=== PATIENT | male | born 1985 | race Caucasian/White ===

== ENCOUNTER 2021-08-25 11:55 | Emergency (ER) | payer OTHER, SELFPAY ==
[2021-08-25 11:56] VITALS: BP 121/92; PULSE 87; RESP 14; TEMP 36.4; O2SAT 100; BMI 24.4
--- NOTE | 2021-08-25 12:35 | CT_ITS ---
STUDY: CT ABDOMEN AND PELVIS WITH CONTRAST REASON FOR EXAM: Male, 36 years old. Abdominal pain RADIATION DOSAGE (If Supplied By Facility): CTDIvol = ( 7.1 ) mGy, DLP = ( 596.71 ) mGycm TECHNIQUE: Transaxial images were obtained from the dome of the diaphragm to the symphysis pubis without oral contrast. IV 100mL Isovue-370 was administered. Sagittal and coronal images were reconstructed. Individualized dose optimization techniques were used for this CT. COMPARISON: None. FINDINGS: There is a 8.3 mm fat-containing nodule in the posterior aspect of the right lower lobe. The visualized portions of the heart are within normal limits. There is decreased attenuation of the liver consistent with steatosis. Normal gallbladder and extrahepatic biliary system. Normal spleen. Normal pancreas. Normal bilateral adrenal glands. Normal right kidney. Normal left kidney. Normal visualized stomach. Normal small intestine. There are multiple colonic diverticula consistent with diverticulosis. The appendix is visualized and appears normal. Normal abdominal aorta. Normal inferior vena cava. Normal retroperitoneum. Normal urinary bladder. There is a small umbilical hernia containing fat. Normal osseous structures. CT/Abdomen/Pelvis W IV Cont ONLY IMPRESSION: Sigmoid diverticulosis. Fatty infiltration of the liver. Electronically Signed: Houston Thomas MD at 15:34 EDT ,
--- NOTE | 2021-08-25 12:43 | EDS_ITS ---
HPI History of Present Illness Chief Complaint: Nausea/Vomiting Informant: patient Narrative Narrative: 36-year-old male presenting to the emergency department with vomiting diarrhea. Patient states for the past 7 days he has had extensive vomiting and diarrhea. He notes some abdominal cramping. He denies any fevers. He notes that the diarrhea is yellow and watery. He denies any blood in the stool or the vomit. Denies any recent bad food exposure. No one else is sick like him at home. He did take some antibiotics recently for a dental infection. He has not been on those for at least 1 week. PFSH PFSH Medical History no medical history no medical history Home Medications dicyclomine 20 mg tablet 20 mg PO TID PRN abdominal pain #20 tabs 08/25/21 [Rx Last Taken Unknown] hydrocodone-acetaminophen 5-325mg 5mg-325mg 1 tab PO Q6H PRN PRN Pain 3 days #12 TABLETS 08/25/21 [Rx Last Taken Unknown] ondansetron 4 mg disintegrating tablet 4 mg PO Q6H PRN PRN Nausea #15 tabs 08/25/21 [Rx Last Taken Unknown] Allergy/AdvReac Type Severity Reaction Status Date / Time No Known Allergies Allergy Verified 08/25/21 11:58 Surgical History Hx of appendectomy Social History (Updated 08/25/21 @ 12:[address] Domo Naranjo DO) current gender identity: male Smoking Status: Never smoker substance use type: does not use ROS ROS ED Constitutional Constitutional ED: Denies chills, fever(s) or weight loss Eyes Eyes: Denies change in vision or diplopia ENT ENT ED: Denies ear pain, rhinorrhea or sore throat Cardiovascular Cardiovascular: Denies chest pain, orthopnea, palpitations or racing heartbeat Respiratory/Chest Respiratory/Chest: Denies cough, dyspnea or orthopnea Gastrointestinal Gastrointestinal: Reports abdominal pain, diarrhea, nausea and vomiting Genitourinary Genitourinary ED: Denies dysuria, hematuria or urinary frequency Musculoskeletal Musculoskeletal: Denies arthralgias or myalgias Integumentary Denies abscess or rash Neurologic Neurologic: Denies headache(s) or weakness Psychiatric Psychiatric: Denies anxiety, depression, suicidal ideation or suicidal thoughts Endocrine Endocrinology: Denies polydipsia, polyphagia or polyuria Allergic/Immunologic Allergic/Immunologic ED: Denies mouth swelling, tongue swelling or urticaria EXAM Physical Exam Const Vital Signs: 08/25/21 11:56 08/25/21 14:00 Temperature 97.6 F L Temperature Source Temporal Pulse Rate 87 70 Respiratory Rate 14 18 Blood Pressure 121/92 H Blood Pressure Mean 101 Pulse Ox 100 Oxygen Delivery Method Room Air Positive well nourished and well developed General Appearance ED: well developed HEENT Reports normocephalic, head/scalp atraumatic and moist mucous membranes Eyes PERRL and EOMs intact bilaterally Neck no lymphadenopathy, supple and no JVD Resp normal respiratory effort and clear to auscultation bilaterally Cardio regular rate, regular rhythm and no murmurs GI non-tender and non-distended Auscultation: hyperactive bowel sounds Palpation: soft; Negative for guarding, mass or rebound tenderness present Back/Spine no CVA tenderness and normal ROM Extremity normal to inspection General Extremety ED: Negative for edema General Extremity: Negative for edema Neuro oriented x3 and CN's II-XII intact bilaterally Sensorium / Orientation: alert Motor Exam: strength 5/5 throughout Psych mental status grossly normal Mood & Affect: Negative for depressed or tearful Skin no rashes or lesions noted and no wounds MDM MDM MDM Narrative Medical decision making narrative: CBC CMP and lipase is normal. CT abdomen pelvis is normal. Patient received Bentyl Zofran and IV fluids. He has been unable to produce a stool specimen. I can write him an order for an outpatient study. I can write for pain medication and Zofran at home. Lab Data Labs: Laboratory Results - last 24 hr 08/25/21 08/25/21 12:45 12:45 WBC 7.2 RBC 5.09 Hgb 14.7 Hct 43.0 MCV 84.5 MCH 28.9 MCHC 34.2 RDW Std Deviation 37.7 RDW Coeff of Rosalva 12.4 Plt Count 374 MPV 9.0 Immature Gran % (Auto) 0.300 Neut % (Auto) 63.6 Lymph % (Auto) 28.6 [place] % (Auto) 5.7 Eos % (Auto) 1.5 Baso % (Auto) 0.3 Absolute Neuts (auto) 4.6 Absolute Lymphs (auto) 2.05 Nucleated RBC % 0 Sodium 142 Potassium 3.9 Chloride 108 H Carbon Dioxide 26.0 Anion Gap 8 BUN 15 Creatinine 1.07 Estim Creat Clear Calc 99.70 Est GFR (MDRD) Af Amer 99 Est GFR (MDRD) Non-Af 82 BUN/Creatinine Ratio 14.0 Glucose 101 Calcium 9.3 Total Bilirubin 0.40 AST 26 ALT 59 Alkaline Phosphatase 63 Total Protein 7.4 Albumin 4.1 Globulin 3.3 Albumin/Globulin Ratio 1.2 Lipase 133 Radiography Diagnostic Testing: Clinical Impression(s) from Imaging Studies Abdomen/Pelvis CT 08/25/21 12:35 IMPRESSION: Sigmoid diverticulosis. Fatty infiltration of the liver. Electronically Signed: Houston Thomas MD at 15:34 EDT , Discharge Plan Triage Chief Complaint: Nausea/Vomiting ED Provider: Domo Naranjo Dx/Rx/DC Orders Clinical Impression: Abdominal pain, vomiting, and diarrhea Instructions: ED Vomiting and Diarrhea ... Prescriptions: New hydrocodone-acetaminophen [hydrocodone-acetaminophen] 5-325 mg tablet 1 tab PO Q6H PRN PRN (Reason: Pain) 3 Days Qty: 12 0RF ondansetron [ondansetron] 4 mg tablet,disintegrating 4 mg PO Q6H PRN PRN (Reason: Nausea) Qty: 15 0RF dicyclomine 20 mg tablet 20 mg PO TID PRN (Reason: abdominal pain) Qty: 20 0RF Other Ambulatory Orders: ENTERIC PATHOGEN PANEL STOOL (Stat) Timeframe: 3 Days Facility: [facility] - Location: Laboratory Ordered By: Dr. Domo Naranjo Primary Care Provider: Care Physician,No Primary Referrals: [facility] Doctor,Out of [NON-STAFF] - Disposition Disposition: Home, Self Care
[2021-08-25] MEDS: Ondansetron 4 MG/2 ML Vial IV (12:45)
[2021-08-25] MEDS: Dicyclomine 10 MG Capsule 20 MG PO (12:46)
[2021-08-25] MEDS: 0.9% Normal Saline 1,000 ML 1000 ML IV (12:48)
[2021-08-25 12:51] LABS: Absolute Lymphocyte Count 2.05 X10^3/uL (0.83-4.51); Absolute Neutrophil Count 4.6 X10^3/uL (2.0-7.7); Basophil# 0.02 X10^3/uL; Basophil% 0.3 % (0-1); Eosinophil# 0.11 X10^3/uL; Eosinophils% 1.5 % (0-5); Hemoglobin 14.7 g/dL (13.0-16.5); Lymphocyte # 2.05 X10^3/ul (0.83-4.51); Lymphocyte % 28.6 % (19-41); Mean Corp Hgb Conc 34.2 g/dL (32-36); Mean Corpuscular Hgb 28.9 pg (27.0-32.0); Mean Corpuscular Volume 84.5 fL (80-94); Monocyte# 0.41 X10^3/uL; Monocyte% 5.7 % (0-10); NRBC Flagged by Analyzer 0 % (0-5); Neutrophil # 4.55 X10^3/uL (2.7-7.7); Neutrophil % 63.6 % (47-70); Platelet Count 374 K/mm3 (150-450); RBC Distribution Width CV 12.4 % (11.6-14.6); RBC Distribution Width SD 37.7 fl (35.1-43.9); Red Blood Count 5.09 M/mm3 (4.6-6.2); White Blood Count 7.2 K/mm3 (4.4-11.0)
[2021-08-25 13:09] LABS: ALB/GLOB Ratio 1.2 RATIO (0.9-2.4); AST(SGOT) 26 U/L (15-37); Alanine Aminotransfer ALT/SGPT 59 U/L (16-61); Albumin, Serum 4.1 g/dL (3.2-5.0); Alkaline Phosphatase 63 U/L (45-117); Anion Gap 8 (5-15); BUN 15 mg/dL (7-18); Calcium,Total 9.3 mg/dL (8.5-10.1); Chloride 108 mmol/L (98-107); Creatinine, Serum 1.07 mg/dL (0.70-1.30); EST Glomerular Filtration Rate 82 mL/min (>60); Est Glom Filt Rate - Afr Amer 99 mL/min (>60); Globulin 3.3 g/dL (2.2-4.2); Glucose 101 mg/dL (74-106); Lipase 133 U/L (73-393); Potassium 3.9 mmol/L (3.5-5.1); Protein, Total 7.4 g/dL (6.4-8.2); Sodium Level 142 mmol/L (136-145)
--- NOTE | 2021-08-25 13:36 | CM.ED ---
Social Work Note Reason for Referral: No PCP SW reviewed chart and pt has no PCP listed. SW in to speak with pt. Pt confirms he has no PCP. SW provided pt with PCP List/[facility] Healthcare Directory. Ericka Cordova SET ILLUSTRATOR, MEDICAL LAB SPECIALIST
[2021-08-25 14:00] VITALS: PULSE 70; RESP 18
[2021-08-25 16:01] VITALS: BP 134/77; PULSE 62; RESP 15; O2SAT 97
== END 2021-08-25 16:03 | disposition home or self-care (01) ==
PROVIDERS: Emergency Provider Emergency Medicine; Visit Provider Emergency Medicine
DX: R11.2 Nausea with vomiting, unspecified (principal); R10.9 Unspecified abdominal pain; R19.7 Diarrhea, unspecified
CPT/HCPCS: 74177; 80053; 83690; 85025; 96361; 96374; 99284; J7030; Q9967; A4216; J2405

== ENCOUNTER 2023-04-27 23:42 | Emergency (ER) | payer OTHER, SELFPAY ==
[2023-04-27 23:43] VITALS: BP 139/105; PULSE 87; RESP 18; TEMP 35.8; O2SAT 96; BMI 25.7
--- NOTE | 2023-04-28 00:03 | CT_ITS ---
EXAM: CT ABDOMEN AND PELVIS WITH INTRAVENOUS CONTRAST CLINICAL INDICATION: diffuse pain, vomiting TECHNIQUE: Helically acquired images were obtained of the abdomen and pelvis with intravenous contrast. This CT exam was performed using one or more of the following dose reduction techniques: automated exposure control, adjustment of the mA and/or kV according to patient size, and/or use of iterative reconstruction technique. CONTRAST: 100 cc of Isovue-370 IV. RADIATION DOSE: CTDIvol = 16.33 mGy, DLP = 884.06 mGy-cm COMPARISON: No relevant prior studies available. FINDINGS: LOWER THORAX: Unremarkable. Lung bases are clear. No cardiomegaly. No significant pericardial effusion. ABDOMEN: LIVER: There is diffuse low-attenuation of the liver. GALLBLADDER AND BILE DUCTS: Unremarkable. No calcified gallstones. No gallbladder distention or wall edema. No intra- or extrahepatic biliary ductal dilation. PANCREAS: Unremarkable. No focal cystic or solid mass. SPLEEN: Unremarkable. Normal size without focal cystic or solid mass. ADRENALS: Unremarkable. No nodules. KIDNEYS AND URETERS: Unremarkable. Normal renal size and position. No hydronephrosis. STOMACH AND BOWEL: Unremarkable. No stomach or bowel distention. No focal inflammatory change. PELVIS: APPENDIX: No evidence of acute appendicitis. BLADDER: Unremarkable. REPRODUCTIVE: Unremarkable as visualized. No mass. ABDOMEN and PELVIS: INTRAPERITONEAL SPACE: Unremarkable. No ascites or other fluid collection. No free air. BONES/JOINTS: Unremarkable. No suspicious lytic or blastic abnormality. SOFT TISSUES: Unremarkable. No discrete abdominal or pelvic wall hernia. VASCULATURE: Unremarkable. Abdominal aorta is non-dilated. LYMPH NODES: Unremarkable. No enlarged lymph nodes. CT/Abdomen/Pelvis W IV Cont ONLY IMPRESSION: 1. Fatty liver. 2. No acute abdominal pelvic abnormality. Electronically Signed: Silviano Hernandez MD at 1:40 EDT ,
--- NOTE | 2023-04-28 00:04 | ED.VIS.GI ---
HPI HPI - GI History of Present Illness Chief Complaint: Constipation Informant: patient Narrative Narrative: Patient states he has been having abdominal discomfort, bloating, constipation for up to about a month, and nonspecific abdominal problems for maybe up to a year. He saw his doctor, was referred to GI with whom he has not had the appointment yet, he is post to see Dr. Yu next week, however in the past couple days everything is worse, he cannot keep anything down, is vomiting without blood or bilious emesis. Initially he was having just very hard stools despite Ex-Lax and stool softeners, then he would intermittently have bouts of watery diarrhea and abdominal cramping and then back to constipation again. In the last week or so, he feels like he needs to go but cannot other than very small amounts of loose stool. [facility] Medical History (Updated 04/28/23 @ 02:[address] Deion Butler MD) Chronic pain after traumatic injury Home Medications dicyclomine 20 mg tablet 20 mg PO TID PRN abdominal pain #20 tabs 08/25/21 [Rx Last Taken Unknown] hydrocodone-acetaminophen 5-325mg 5mg-325mg 1 tab PO Q6H PRN PRN Pain 3 days #12 TABLETS 08/25/21 [Rx Last Taken Unknown] ondansetron 4 mg disintegrating tablet 4 mg PO Q6H PRN PRN Nausea #15 tabs 08/25/21 [Rx Last Taken Unknown] cyclobenzaprine 10 mg tablet 10 mg PO Q8H PRN PRN muscle spasm 04/28/23 [History Last Taken Unknown] hyoscyamine sulfate 0.125 mg disintegrating tablet 0.125 mg PO Q6H PRN abdominal discomfort #20 tabs 04/28/23 [Rx Last Taken Unknown] Allergy/AdvReac Type Severity Reaction Status Date / Time codeine Allergy Mild Chest Verified 04/27/23 23:42 tightness Surgical History Hx of appendectomy Social History Smoking Status: Former smoker substance use type: does not use ROS ROS ED Constitutional Constitutional ED: Denies chills or fever(s) Eyes Eyes: Denies change in vision or diplopia ENT ENT ED: Denies rhinorrhea or sore throat Cardiovascular Cardiovascular: Denies chest pain or palpitations Respiratory/Chest Respiratory/Chest: Denies cough or dyspnea Gastrointestinal Gastrointestinal: Reports abdominal pain, constipation, diarrhea, nausea and vomiting; Denies melena Genitourinary Genitourinary ED: Denies dysuria or hematuria Musculoskeletal Musculoskeletal: Denies back pain or neck pain Integumentary Denies abscess or rash Neurologic Neurologic: Denies headache(s), paresthesias or weakness Psychiatric Psychiatric: Denies anxiety or suicidal thoughts EXAM Physical Exam Const Vital Signs: 04/27/23 23:43 04/28/23 00:19 04/28/23 02:00 Temperature 96.5 F L Temperature Source Temporal Pulse Rate 87 66 80 Respiratory Rate 18 18 16 Blood Pressure 139/105 H 134/92 H 121/92 H Blood Pressure Mean 116 106 101 Pulse Ox 96 100 100 Oxygen Delivery Method Room Air Room Air Room Air Positive well nourished and well developed General Appearance ED: well developed and NAD HEENT Reports moist mucous membranes normocephalic and atraumatic Eyes PERRL and EOMs intact bilaterally Neck full ROM and supple Resp normal respiratory effort and clear to auscultation bilaterally Cardio regular rate, regular rhythm and no murmurs GI GI Narrative: Distended abdomen with hypoactive bowel sounds but an occasional tinkle. Tender right lower quadrant and across the upper abdomen. Palpation: soft Back/Spine no CVA tenderness General Back: other FROM Extremity normal to inspection General Extremety ED: Negative for edema, pulses abnormal or tenderness General Extremity: Negative for edema or pulses abnormal Neuro oriented x3, CN's II-XII intact bilaterally and no sensory deficits noted Sensorium / Orientation: awake and alert Motor Exam: strength 5/5 throughout Psych mental status grossly normal and thought process normal Skin no rashes or lesions noted and no wounds MDM MDM MDM Narrative Medical decision making narrative: We discussed treating constipation, however they are thinking this is something different. With the intermittent nature of the consistency of his stools, certainly encopresis is in the differential, but this may also be something different like colitis, irritable bowel syndrome, inflammatory bowel disease. Therefore prior to his specific treatment, he is amenable to CT and labs. This was done. I reviewed the CT images and report which I agree with, basically negative for anything acute. When I reevaluated him, he states he is still feeling bloated. His bowels are not distended on the CT. He has stool in the ascending and descending colon, but not an excessive amount. We discussed trying an enema, he declines. We did discuss fatty liver finding on the CT which is an incidental finding and I do not think related to the symptoms directly. 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 Therefore I did a bedside ultrasound of his gallbladder, he has a negative sonographic Brower's, I see no shadowing stones or gallbladder wall thickening or pericholecystic fluid. At this time my recommendation would be to try a mini cleanse with 1-2 cups of MiraLAX in a 12-hour period along with plenty of water, dicyclomine as needed, and follow-up with GI as scheduled. He is amenable to this plan. Lab Data Attestation: I reviewed the patient's lab results. Labs: Laboratory Results - last 24 hr 04/28/23 00:10 WBC 9.2 RBC 5.43 Hgb 15.5 Hct 45.1 MCV 83.1 MCH 28.5 MCHC 34.4 RDW Std Deviation 37.2 RDW Coeff of [place]al[place] 12.3 Plt Count 342 MPV 9.3 Immature Gran % (Auto) 1.300 H Neut % (Auto) 56.0 Lymph % (Auto) 34.1 [place] % (Auto) 5.8 Eos % (Auto) 2.3 Baso % (Auto) 0.5 Absolute Neuts (auto) 5.2 Absolute Lymphs (auto) 3.14 Nucleated RBC % 0 Sodium 143 Potassium 3.3 L Chloride 111 H Carbon Dioxide 25.0 Anion Gap 7 BUN 15 Creatinine 1.13 Estim Creat Clear Calc 92.55 Est GFR (MDRD) Af Amer 92 Est GFR (MDRD) Non-Af 76 BUN/Creatinine Ratio 13.3 Glucose 120 H Calcium 9.2 Total Bilirubin 1.00 AST 40 H ALT 106 H Alkaline Phosphatase 53 Total Protein 7.5 Albumin 4.4 Globulin 3.1 Albumin/Globulin Ratio 1.4 Lipase 48 Urine Color Yellow Urine Clarity Clear Urine pH 5.0 Ur Specific [place] 1.020 Urine Protein Negative Urine Glucose (UA) Normal Urine Ketones 50 H Urine Occult Blood Negative Urine Nitrite Negative Urine Bilirubin Negative Urine Urobilinogen Normal Ur Leukocyte Esterase Negative Urine RBC 0 SEEN Urine WBC 0 SEEN Ur Squamous Epith Cells 0 SEEN Urine Bacteria 0 SEEN Urine Mucus 0 SEEN Radiography Diagnostic Testing: Clinical Impression(s) from Imaging Studies Abdomen/Pelvis CT 04/28/23 00:03 IMPRESSION: 1. Fatty liver. 2. No acute abdominal pelvic abnormality. Electronically Signed: Silviano Hernandez MD at 1:40 EDT , Discharge Plan Triage Chief Complaint: Constipation ED Provider: Deion Butler Dx/Rx/DC Orders Clinical Impression: Diffuse abdominal pain Instructions: Abdominal Pain Prescriptions: New hyoscyamine sulfate 0.125 mg tablet,disintegrating 0.125 mg PO Q6H PRN (Reason: abdominal discomfort) Qty: 20 0RF No Action hydrocodone-acetaminophen [hydrocodone-acetaminophen] 5-325 mg tablet 1 tab PO Q6H PRN PRN (Reason: Pain) 3 Days Qty: 12 0RF ondansetron [ondansetron] 4 mg tablet,disintegrating 4 mg PO Q6H PRN PRN (Reason: Nausea) Qty: 15 0RF dicyclomine 20 mg tablet 20 mg PO TID PRN (Reason: abdominal pain) Qty: 20 0RF cyclobenzaprine 10 mg tablet 10 mg PO Q8H PRN PRN (Reason: muscle spasm) Primary Care Provider: Care Physician,No Primary Referrals: Saleem Yu MD [Non-Staff] - [facility] appointment Activity Restrictions/Additional Instructions: Consider trying a mini colon cleanse with MiraLAX or generic equivalent (polyethylene glycol or PEG). Use 1-2 cups with plenty of water within a 8-hour period, and expect watery diarrhea within 12 hours. Drink plenty of water to prevent getting dehydrated. Disposition Disposition: Home, Self Care
[2023-04-28] MEDS: 0.9% Normal Saline (1000mL) 1,000 ML 1000 ML IV (00:17)
[2023-04-28] MEDS: Ondansetron 4 MG/2 ML Vial IV (00:17)
[2023-04-28] MEDS: Ketorolac 15 MG/ML Vial IV (00:17)
[2023-04-28] MEDS: fentaNYL 100 MCG/2 ML Ampul 50 MCG IV (00:17)
[2023-04-28 00:19] VITALS: BP 134/92; PULSE 66; RESP 18; O2SAT 100
[2023-04-28 00:22] LABS: Bacteria 0 SEEN /hpf (None Seen); Mucous, Urine 0 SEEN /hpf (<or=2+); Red Blood Cells-Urine 0 SEEN /hpf (0-5); Squamous Epithelial Cells - UA 0 SEEN /hpf (0-5); White Blood Cells 0 SEEN /hpf (0-5)
[2023-04-28 00:26] LABS: Color, Urine Yellow (Yellow); Glucose, Dipstick Normal (Normal); Ketone-Dipstick 50 mg/dl (Negative); Leukocyte Esterase-Dipstick Negative /ul (Negative); Nitrite-Dipstick Negative (Negative); Occult Blood-Urine Negative /ul (Negative); Protein-Dipstick Negative (Negative); Urine Bilirubin Dipstick Negative (Negative); Urine Clarity Clear (Clear); Urine Urobilinogen Normal (Normal)
[2023-04-28 00:33] LABS: Absolute Lymphocyte Count 3.14 X10^3/uL (0.83-4.51); Absolute Neutrophil Count 5.2 X10^3/uL (2.0-7.7); Basophil# 0.05 X10^3/uL; Basophil% 0.5 % (0-1); Eosinophil# 0.21 X10^3/uL; Eosinophils% 2.3 % (0-5); Hematocrit 45.1 % (40-54); Hemoglobin 15.5 g/dL (13.0-16.5); Lymphocyte # 3.14 X10^3/ul (0.83-4.51); Lymphocyte % 34.1 % (19-41); Mean Corp Hgb Conc 34.4 g/dL (32-36); Mean Corpuscular Hgb 28.5 pg (27.0-32.0); Mean Corpuscular Volume 83.1 fL (80-94); Mean Platelet Vol. 9.3 fl (6.2-12.0); Monocyte# 0.53 X10^3/uL; Monocyte% 5.8 % (0-10); NRBC Flagged by Analyzer 0 % (0-5); Neutrophil # 5.16 X10^3/uL (2.7-7.7); Platelet Count 342 K/mm3 (150-450); RBC Distribution Width CV 12.3 % (11.6-14.6); RBC Distribution Width SD 37.2 fl (35.1-43.9); Red Blood Count 5.43 M/mm3 (4.6-6.2); White Blood Count 9.2 K/mm3 (4.4-11.0)
[2023-04-28 00:43] LABS: ALB/GLOB Ratio 1.4 RATIO (0.9-2.4); AST(SGOT) 40 U/L (15-37); Alanine Aminotransfer ALT/SGPT 106 U/L (16-61); Albumin, Serum 4.4 g/dL (3.2-5.0); Alkaline Phosphatase 53 U/L (45-117); Anion Gap 7 (5-15); BUN 15 mg/dL (7-18); BUN/Creat Ratio 13.3 RATIO (10-20); Calcium,Total 9.2 mg/dL (8.5-10.1); Chloride 111 mmol/L (98-107); Creatinine, Serum 1.13 mg/dL (0.70-1.30); EST Glomerular Filtration Rate 76 mL/min (>60); Est Glom Filt Rate - Afr Amer 92 mL/min (>60); Estimated Creatinine Clearance 92.55 ml/min; Globulin 3.1 g/dL (2.2-4.2); Glucose 120 mg/dL (74-106); Lipase 48 U/L (13-75); Potassium 3.3 mmol/L (3.5-5.1); Protein, Total 7.5 g/dL (6.4-8.2); Sodium Level 143 mmol/L (136-145)
[2023-04-28 02:00] VITALS: BP 121/92; PULSE 80; RESP 16; O2SAT 100
[2023-04-28 03:02] VITALS: BP 120/82; PULSE 65; RESP 18; TEMP 36.9; O2SAT 100
== END 2023-04-28 03:03 | disposition home or self-care (01) ==
PROVIDERS: Emergency Provider Emergency Medicine; Visit Provider Emergency Medicine
DX: R10.9 Unspecified abdominal pain (principal); Z87.891 Personal history of nicotine dependence
CPT/HCPCS: 74177; 80053; 81001; 83690; 85025; 99283; J7030; Q9967; J2405

== ENCOUNTER → 2023-05-05 | Outpatient (CLI) | payer OTHER, SELFPAY ==
[2023-05-05 13:03] LABS: ALB/GLOB Ratio 1.3 RATIO (0.9-2.4); AST(SGOT) 44 U/L (15-37); Alanine Aminotransfer ALT/SGPT 96 U/L (16-61); Albumin, Serum 4.4 g/dL (3.2-5.0); Alkaline Phosphatase 53 U/L (45-117); Anion Gap 5 (5-15); BUN 15 mg/dL (7-18); BUN/Creat Ratio 12.8 RATIO (10-20); CRP < 2.90 mg/L (0.0-3.0); Calcium,Total 9.6 mg/dL (8.5-10.1); Chloride 108 mmol/L (98-107); Creatinine, Serum 1.17 mg/dL (0.70-1.30); EST Glomerular Filtration Rate 73 mL/min (>60); Est Glom Filt Rate - Afr Amer 89 mL/min (>60); Globulin 3.5 g/dL (2.2-4.2); Glucose 107 mg/dL (74-106); Potassium 3.8 mmol/L (3.5-5.1); Protein, Total 7.9 g/dL (6.4-8.2); Sodium Level 140 mmol/L (136-145); T4 Total, Thyroxin 11.2 ug/dL (4.5-12.1); Thyroid Stim Hormone (TSH) 1.17 uIU/mL (0.358-3.74)
== END | disposition home or self-care (01) ==
PROVIDERS: Referring Provider Internal Medicine Gastroenterology; Visit Provider Internal Medicine Gastroenterology
DX: K59.00 Constipation, unspecified (principal)
CPT/HCPCS: 36415; 80053; 84436; 84443; 86140

== ENCOUNTER → 2025-01-03 | Outpatient (CLI) | payer OTHER, SELFPAY ==
[2025-01-03 12:19] LABS: Hematocrit 47.4 % (40-54); Hemoglobin 16.1 g/dL (13.0-16.5); Mean Corp Hgb Conc 34.0 g/dL (32-36); Mean Corpuscular Volume 84.6 fL (80-94); Mean Platelet Vol. 9.5 fl (6.2-12.0); Platelet Count 356 K/mm3 (150-450); RBC Distribution Width CV 12.2 % (11.6-14.6); RBC Distribution Width SD 37.4 fl (35.1-43.9); Red Blood Count 5.60 M/mm3 (4.6-6.2); White Blood Count 11.5 K/mm3 (4.4-11.0)
--- OUTSIDE RECORDS SUMMARY | 2025-01-03 12:40 | XMS RPT_ITS | CCD ---
Author Organization [facility] Care Team Providers Care [facility] Service Representative Name Role Phone Unavailable Primary Care Provider Unavailabl e PHYSICIAN, NONE Primary Care Physician Unavailab Saleem Davis Referring Unavailable Saleem Yu Attending Unavailable Care Physician, No Primary Primary Care Unava ilable Deion Butler Attending Unavailable Care Physician, No Primary Primary Care Unava ilable YOLIE MAYA Attending Unavailable PHYSICIAN, NONE Primary Care Unavailable Unavailable Primary Care Provider Unavailabl e Allergies Allergy Classification Reported Allergen(s) Allergy Type Date of Onset Reaction(s) Facility (7 sources) Codeine; Translations: [codeine] Drug Allergy 06-05-2019 Unknown [facility] (1 source) Codeine Drug Allergy 04-27-2023 [facility] Repository Medications Current Medications Medication Drug Class(es) Dates Sig (Normalized) Sig (Original) acetaminophen 325 mg / HYDROcodone bitartrate 5 mg oral tablet (3 sources) Opioid Agonist Start: 08-25-2021 take 1 tablet by mouth every six hours as needed Hydrocodone-Acet aminophen Active 1 TABLET PO EVERY 6 HOURS NEEDED 12 3 August 25, 2021 acetaminophen 325 mg / oxyCODONE hydrochloride 5 mg oral tablet (1 source) Opioid Agonist Start: 03-02-2013 Percocet 325/5 oral tablet Dose = 1 tab(s), Oral, q6h, PRN Pain, scale 5-8 (Moderate), # 12 tab(s), 0 Refill(s) Start Date: 03/02/13 Status: Ordered [id number] 200 actuat albuterol 0.09 mg/actuat metered dose inhaler (1 source) beta2-Adrenergic Agonist Start: 03-02-2013 take 1 dose by inhalation four times daily as needed for wheezing ProAir HFA MDI (90 mcg/inh) inhalation aerosol Dose = 1 puff(s), Inhalation, QID, PRN for wheezing, # 8.5 g, 0 Refill(s) Start Date: 03/02/13 Status: Ordered amoxicillin 875 mg / clavulanate 125 mg oral tablet (2 sources) Penicillin-class Antibacterial Start: 11-24-2023 End: 11-29-2023 take 1 tablet by mouth twice daily amoxicillin-clav ulanate potassium (AUGMENTIN) 875-125 mg per tablet Indications: Lower resp. tract infection Take 1 tablet by mouth two times a day for 5 days. 10 tablet 11/24/2023 11/29/2023 Active Start: 08-17-2021 End: 08-24-2021 take 1 tablet by mouth twice daily amoxicillin-clavulanic acid (AUGMENTIN) 875-125 mg per tablet Take 1 tablet by mouth twice daily for 7 days. 14 tablet 0 08/17/2021 08/24/2021 Active Comment on above: Take 1 tablet by savanna th twice daily for 7 days. cyclobenzaprine hydrochloride 10 mg oral tablet (4 sources) Muscle Relaxant Start: 04-28-19 take 10 mg by mouth every eight hours as needed Cyclobenzaprine Active 10 MG PO EVERY 8 HOURS NEEDED April 28, 2023 12:00am Start: 01-23-2021 take 1 tablet by savanna th three times daily as needed for muscle spasms cyclobenzaprine (FLEXERIL) 10 mg tablet Indications: Upper back pain Take 1 tablet by mouth three times daily as needed for muscle spasm. 12 tablet 01/23/2021 Active Comment on above: Take 1 tablet by savanna th three times daily as needed for muscle spasm. dicyclomine hydrochloride 20 mg oral tablet (3 sources) Anticholinergic Start: 08-26-19 take 20 mg by mouth three times daily Dicyclomine Active 20 MG PO THREE TIMES A DAY August 25, 2021 3:48pm doxycycline monohydrate 100 mg oral tablet (1 source) Tetracycline-class Drug Start: 11-24-19 End: 11-29-19 24 take 1 tablet by mouth twice daily doxycycline monohydrate 100 mg tablet Indications: Lower resp. tract infection Take 1 tablet by mouth two times a day for 5 days. 10 tablet 11/24/2023 11/29/2023 Active hyoscyamine sulfate 0.125 mg disintegrating oral tablet (2 sources) Start: 04-28-19 take 0.125 mg by mouth every six hours Hyoscyamine Sulfate Active 0.125 MG PO EVERY 6 HOURS April 28, 2023 2:54am ibuprofen 400 mg oral tablet (1 source) Nonsteroidal Anti-inflammatory Drug Start: 03-02-19 ibuprofen 400 mg oral tablet Dose : 400 mg = 1 tab(s), Oral, q4h, PRN for pain, # 60 tab(s), 0 Refill(s) Start Date: 03/02/13 Status: Ordered naproxen sodium 220 mg oral capsule (2 sources) Nonsteroidal Anti-inflammatory Drug naproxen sodium (ALEVE) 220 mg cap Take by mouth as needed. Active Comment on above: Take by mouth as nee ded. omeprazole 20 mg delayed release oral capsule (1 source) Proton Pump Inhibitor take 1 capsule by mouth once daily omeprazole (PRILOSEC) 20 mg capsule Take 20 mg by mouth once daily. Active ondansetron 4 mg disintegrating oral tablet (3 sources) Serotonin-3 Receptor Antagonist Start: 08-26-19 take 4 mg by mouth every six hours as needed Ondansetron Active 4 MG PO EVERY 6 HOURS NEEDED August 25, 2021 3:47pm Completed/Discontinued Medications Medication Drug Class(es) Dates Sig (Normalized) Sig (Original) methylPREDNISolone (1 source) Corticosteroid Start: 7 End: 1 methylPREDNISolone (MEDROL DOSE-PACK) 4 mg Dose-Pack As Instructed per package 1 Package 09/07/2016 01/23/2021 Discontinued rivaroxaban 15 mg oral tablet (1 source) Factor Xa Inhibitor Start: 4 End: 4 Xarelto 15 mg oral tablet Dose : 15 mg = 1 tab(s), Oral, BIDM, 0 Refill(s) Start Date: 02/28/13 Stop Date: 03/21/13 Status: Ordered Problems Problem Classification Problem Date Documented Da te Episodic/Chronic Abdominal pain (7 sources) Abdominal pain; Translations: [Unspecified abdominal pain] Onset: 05-03-2023 02-27-2013 Episodic Disorders of teeth and jaw (1 source) Toothache; Translations: [Other specified disorders of teeth and supporting structures] Episodic Immunizations and screening for infectious disease (1 source) Contact with and (suspected) exposure to other communicable diseases; Translations: [Contact with or exposure to other communicable diseases] 11-24-2023 Episodic Other gastrointestinal disorders (1 source) Constipation, unspecified; Translations: [Constipation, unspecified] Onset: 05-10-2023 Episodic Other lower respiratory disease (1 source) Lower respiratory tract infection; Translations: [Unspecified acute lower respiratory infection] 11-24-2023 Episodic Unclassified (1 source) Rupture (morphologic abnormality) 02-27-2013 Comment on above: left tear in the ACL Results Test Name Value Interpretation Reference Range Facility CNOVon 11-24-2023 CNOV Office Visit ([facility]) ---- ROEL ROSE ([id number]) 1985 M Date Time Provider Department 11/24/23 10:30 AM SUJATA MAY [facility] During your visit today, we recorded the following information about you: Temperature Pulse Respiration Blood pressure 100.6 degrees 128/minute 20/minute 133/93 Weight 86.2 kg Sujata May APRN.PEER SPECIALIST 11/24/2023 10:54 AM Signed Subjective HPI HPI Roel Lehman Rose is a 38 year old male who presents today for CC of cough, fever, congestion. This started 5 days ago/worsening. Has tried otc medication for relief. Symptoms are worsened by nothing. Risk factors pneumonia exposure at home. Nonsmoker. .Patient presents with: Fever: Cough, chest congestion, CHARLTON, bodyaches x5 days, exposure to pneumonia No past medical history on file. PAST SURGICAL HISTORY Procedure Laterality Date PAST SURGICAL HISTORY OF multiple knee surgeries ALLERGIES Codeine MEDICATIONS omeprazole (PRILOSEC) 20 mg capsule Take 20 mg by mouth once daily. cyclobenzaprine (FLEXERIL) 10 mg tablet Take 1 tablet by mouth three times daily as needed for muscle spasm. naproxen sodium (ALEVE) 220 mg cap Take by mouth as needed. (Patient not taking: Reported on 11/24/2023) FAMILY HISTORY Problem Relation Age of Onset Heart disease Father Hypertension Father Social History Tobacco Use Smoking status: Former Current packs/day: 0.00 Types: Cigarettes Quit date: 02/18/2020 Years since quittin.7 Smokeless tobacco: Never Substance Use Topics Alcohol use: Never Drug use: Never Review of Systems Constitutional: Positive for chills, fever and malaise/fatigue. HENT: Positive for congestion and sinus pain. Negative for ear pain, nosebleeds and sore throat. Respiratory: Positive for cough and sputum production. Negative for shortness of breath and wheezing. Cardiovascular: Negative for chest pain. Musculoskeletal: Negative for neck pain. Skin: Negative for itching and rash. Objective Blood pressure 133/93, pulse (!) 128, temperature (!) 38.1 ?C (100.6 ?F), resp. rate 20, weight 86.2 kg (190 lb 0.6 oz), SpO2 98%. Physical Exam Constitutional: General: He is not in acute distress. Appearance: He is not toxic-appearing or diaphoretic. HENT: Head: Normocephalic and atraumatic. Cardiovascular: Rate and Rhythm: Normal rate and regular rhythm. Heart sounds: Normal heart sounds, S1 normal and S2 normal. Pulmonary: Effort: Pulmonary effort is normal. Breath sounds: Examination of the right-lower field reveals rhonchi. Rhonchi present. No decreased breath sounds, wheezing or rales. Lymphadenopathy: Cervical: No cervical adenopathy. Right cervical: No superficial cervical adenopathy. Left cervical: No superficial cervical adenopathy. Neurological: Mental Status: He is alert and oriented to person, place, and time. Gait: Gait is intact. ASSESSMENT/PLAN: 1. Lower resp. tract infection - ICD9: 519.8, ICD10: J22 (primary diagnosis) - Discussed supportive care - Limit exposure to smoke and other inhaled irritants - Discussed possible red flags and when to seek medical attention - Follow up in 3-5 days or sooner if no better or worse -If you experience chest pain/shortness of breath go to ER -declines xray - DOXYCYCLINE MONOHYDRATE 100 MG TABLET - AMOXICILLIN 875 MG-POTASSIUM CLAVULANATE 125 MG TABLET 2. Pneumonia exposure - ICD9: V01.89, ICD10: Z20.89 Exam concerning for pneumonia. Sujata May APRN.PEER SPECIALIST Allergies As of Date: 11/24/2023 Noted Allergy Reaction CODEINE 06/05/2019 16 - Unknown Date Reviewed: 11/24/2023 Reviewed by: Shanda Zhu MA - Fully Assessed Reason for Visit: Fever [47] Cmt: Cough, chest congestion, CHARLTON, bodyaches x5 days, exposure to pneumonia Primary Visit Diagnosis:Lower resp. tract infection [J22] Other Visit Diagnosis:Pneumonia exposure [Z20.89] Order(s):doxycyclin e monohydrate 100 mg tabletTake 1 tablet by mouth two times a day for 5 days.Disp: 10 tabletRfl: 0 amoxicillin-clavula johnny potassium (AUGMENTIN) 875-125 mg per tabletTake 1 tablet by mouth two times a day for 5 days.Disp: 10 tabletRfl: 0 Prescriptions as of 11/24/2023 - omeprazole (PRILOSEC) 20 mg capsule Take 20 mg by mouth once daily. - doxycycline monohydrate 100 mg tablet Take 1 tablet by mouth two times a day for 5 days. - amoxicillin-clavula johnny potassium (AUGMENTIN) 875-125 mg per tablet Take 1 tablet by mouth two times a day for 5 days. - naproxen sodium (ALEVE) 220 mg cap Take by mouth as needed. - cyclobenzaprine (FLEXERIL) 10 mg tablet Take 1 tablet by mouth three times daily as needed for muscle spasm. Problem List As Of Date: 11/24/2023 (None) Prescriptions ordered this encounter Disp Refills Start End DOXYCYCLINE MONOHYDRATE 100 MG TABLET 10 t* 0 11/24/2023 11/29/2023 Route: ORAL Sig: Take 1 tablet by mouth two times a day for 5 days. AM (more content not included)... Normal [facility] Basophil percentageOrdered B y: Saleem Yu on 05-05-2023 Bilirubin [Mass/Vol] 0.80 mg/dL 0.20-1.[address] [facility] Comment on above: For patients on eltr ombopag therapy, use of Dimension Fosters TBIL is not recommended. Chloride [Moles/Vol] 108 mmol/L 98-[address] [facility] Glucose [Mass/Vol] 107 mg/dL 74-106 [facility] Comment on above: Fasting Glucose resu lt from 100 to 125 mg/dL suggests IMPAIRED HOMEOSTASIS per A.D.A. criteria. Potassium [Moles/Vol] 3.8 mmol/L 3.5-5.1 [facility] Protein [Mass/Vol] 7.9 g/dL 6.4-8.2 [facility] Sodium [Moles/Vol] 140 mmol/L 136-145 [facility] CRPon 05-05-2023 C-REACTIVE PROT < 2.90 Normal 0.0-3.0 [facility] Comment on above: Result Comment: C-Re active Protein (CRP) provides useful information for the diagnosis, therapy and monitoring of inflammatory processes and associated diseases. For the evaluation of Relative Risk for Cardiovascular Disease, a High Sensitivity CRP (HSCRP) should be ordered. Performed By: #### L 501.9520, L501.9310, L501.6710, L500.4050 #### [facility] [address] [place], [address] Comprehensive Metabolic Prof ilon 05-05-2023 Albumin [Mass/Vol] 4.4 g/dL Normal 3.2-5.0 [facility] Comment on above: Performed By: #### L [id number], L501.9310, L501.6710, L500.4050 #### [facility] [address] [place], [address] Albumin/Globulin [Mass ratio] 1.3 {ratio} Normal 0.9-2.4 [facility] Comment on above: Performed By: #### L [id number], L501.9310, L501.6710, L500.4050 #### [facility] [address] [place], [address] ALK P 53 U/L Normal 45-117 [facility] Comment on above: Performed By: #### L [id number], L501.9310, L501.6710, L500.4050 #### [facility] [address] [place], [address] ALT [Catalytic activity/Vol] 96 U/L High 16-61 [facility] Comment on above: Performed By: #### L [id number], L501.9310, L501.6710, L500.4050 #### [facility] [address] [place], [address] AST [Catalytic activity/Vol] 44 U/L High 15-37 [facility] Comment on above: Performed By: #### L [id number], L501.9310, L501.6710, L500.4050 #### [facility] [address] [place], [address] Bilirubin [Mass/Vol] 0.80 mg/dL Normal 0.20-1.[address] [facility] Comment on above: Result Comment: For patients on eltrombopag therapy, use of Dimension Fosters TBIL is not recommended. Performed By: #### L 501.9520, L501.9310, L501.6710, L500.4050 #### [facility] [address] [place], [address] BUN/CRE 12.8 RATIO Normal 10-20 [facility] Comment on above: Performed By: #### L [id number], L501.9310, L501.6710, L500.4050 #### [facility] [address] [place], [address] CA,Total 9.6 mg/dL Normal 8.5-10.1 [facility] Comment on above: Performed By: #### L 501.9520, L501.9310, L501.6710, L500.4050 #### [facility] [address] [place], [address] Chloride [Moles/Vol] 108 mmol/L High 98-[address] [facility] Comment on above: Performed By: #### L 501.9520, L501.9310, L501.6710, L500.4050 #### [facility] [address] [place], [address] CO2 [Moles/Vol] 27.0 mmol/L Normal 21.0-32.0 [facility] Comment on above: Performed By: #### L 501.9520, L501.9310, L501.6710, L500.4050 #### [facility] [address] [place], [address] Creatinine [Mass/Vol] 1.17 mg/dL Normal 0.70-1.30 [facility] Comment on above: Result Comment: The validity of the calculated GFR GFRAA in patients over 70 years has not been determined. Clinical correlation is essential. Performed By: #### L 501.9520, L501.9310, L501.6710, L500.4050 #### [facility] [address] [place], [address] EST GFR - AA 89 mL/min Normal >60 [facility] Comment on above: Result Comment: Afri can Mosotho GFR Calc Performed By: #### L 501.9520, L501.9310, L501.6710, L500.4050 #### [facility] [address] [place], [address] GAP 5 Normal 5-15 [facility] Comment on above: Performed By: #### L 501.9520, L501.9310, L501.6710, L500.4050 #### [facility] [address] [place], [address] GFR/1.73 sq M.predicted among non-blacks MDRD (S/P/Bld) [Vol rate/Area] 73 mL/min/{1.73_m2} Normal >[address] [facility] Comment on above: Result Comment: Non- GFR Calc Performed By: #### L 501.9520, L501.9310, L501.6710, L500.4050 #### [facility] [address] [place], [address] Globulin (S) [Mass/Vol] 3.5 g/dL Normal 2.2-4.2 [facility] Comment on above: Performed By: #### L 501.9520, L501.9310, L501.6710, L500.4050 #### [facility] [address] [place], [address] Glucose [Mass/Vol] 107 mg/dL High 74-106 [facility] Comment on above: Result Comment: Fast ing Glucose result from 100 to 125 mg/dL suggests IMPAIRED HOMEOSTASIS per A.D.A. criteria. Performed By: #### L 501.9520, L501.9310, L501.6710, L500.4050 #### [facility] [address] [place], [address] Potassium [Moles/Vol] 3.8 mmol/L Normal 3.5-5.1 [facility] Comment on above: Performed By: #### L 501.9520, L501.9310, L501.6710, L500.4050 #### [facility] [address] [place], [address] Sodium [Moles/Vol] 140 mmol/L Normal 136-145 [facility] Comment on above: Performed By: #### L 501.9520, L501.9310, L501.6710, L500.4050 #### [facility] [address] [place], [address] T PROT 7.9 g/dL Normal 6.4-8.2 [facility] Comment on above: Performed By: #### L 501.9520, L501.9310, L501.6710, L500.4050 #### [facility] [address] [place], [address] Urea nitrogen [Mass/Vol] 15 mg/dL Normal 7-18 [facility] Comment on above: Performed By: #### L 501.9520, L501.9310, L501.6710, L500.4050 #### [facility] [address] [place], [address] Laboratory - Chemistry and C hemistry - challengeOrdered By: Saleem Yu on 05-05-2023 Albumin/Globulin [Mass ratio] 1.3 {ratio} 0.9-2.4 [facility] ALP [Catalytic activity/Vol] 53 U/L 45-117 [facility] ALT [Catalytic activity/Vol] 96 U/L 16-61 [facility] CO2 [Moles/Vol] 27.0 mmol/L 21.0-32.0 [facility] Globulin (S) [Mass/Vol] 3.5 g/dL 2.2-4.2 [facility] Urea nitrogen/Creatinine [Mass ratio] 12.8 mg/mg 10-20 [facility] No Panel InformationOrdered By: Saleem Yu on 05-05-2023 C-Reactive Protein Extended Range < 2.90 mg/L 0.0-3.0 [facility] Comment on above: C-Reactive Protein ( CRP) provides useful information for thediagnosis, therapy and monitoring of inflammatory processesand associated diseases. For the evaluation of Relative Riskfor Cardiovascular Disease, a High Sensitivity CRP (HSCRP)should be ordered. Estimated GFR (MDRD) Amer 89 mL/min >60 [facility] Comment on above: GFR Calc Estimated GFR (MDRD) Non-Af Amer 73 mL/min >60 [facility] Comment on above: Non- GFR Calc Serum or plasma calcium margaret urement (mass/volume)Ordered By: Saleem Yu on 05-05-2023 Calcium [Mass/Vol] 9.6 mg/dL 8.5-10.1 [facility] Serum or plasma creatinine m easurement (mass/volume)Ordered By: Saleem Yu on 05-05-2023 Creatinine [Mass/Vol] 1.17 mg/dL 0.70-1.30 [facility] Comment on above: The validity of the calculated GFR & GFRAA in patients over 70 years has not been determined. Clinical correlation is essential. Serum or plasma thyroid stim ulating hormone (TSH) measurement (units/volume)Ordered By: Saleem Yu on 05-05-2023 TSH Qn 1.17 uIU/mL 0.358-3.74 [facility] Serum or plasma thyroxine (T 4) measurement (mass/volume)Ordered By: Saleem Yu on 05-05-2023 T4 [Mass/Vol] 11.2 ug/dL 4.5-12.1 [facility] Serum or plasma urea nitroge n measurement (mass/volume)Ordered By: Saleem Yu on 05-05-2023 Urea nitrogen [Mass/Vol] 15 mg/dL 7-18 [facility] T4 Total, Thyroxinon 024 T4 [Mass/Vol] 11.2 ug/dL Normal 4.5-12.1 [facility] Comment on above: Performed By: #### L [id number], L501.9310, L501.6710, L500.4050 #### [facility] [address] [place], [place], [address] Thin prep Papanicolaou smear with manual screeningOrdered By: Saleem Yu on 05-05-2023 Thin prep Papanicolaou smear with manual screening 4.4 g/dL 3.2-5.0 [facility] Thin prep Papanicolaou smear with manual screening 44 U/L 15-37 [facility] Thin prep Papanicolaou smear with manual screening 5 5-15 [facility] Thyroid Stim Hormone (TSH)on 05-05-2023 TSH 1.17 uIU/mL Normal 0.358-3.74 [facility] Comment on above: Performed By: #### L [id number], L501.9310, L501.6710, L500.4050 #### [facility] [address] [place], [place], [address] Abdomen/Pelvis W IV Cont ONL Yon 04-28-2023 Abdomen/Pelvis W IV Cont ONLY [facility] [address] [place] [address] Abdomen/Pelvis W IV Cont ONLY MR#: [id number] Acct: [id number] Name: ROEL ROSE Rep #: [id number] : 1985 M 38 From: Silviano Vidal PCP: Care Physician,No Primary Status: DEP ER Study: Abdomen/Pelvis W IV Cont ONLY Date of Exam: Exam# [id number] Ordering Dr: Deion Butler MD -[id number] EXAM: CT ABDOMEN AND PELVIS WITH INTRAVENOUS CONTRAST CLINICAL INDICATION: diffuse pain, vomiting TECHNIQUE: Helically acquired images were obtained of the abdomen and pelvis with intravenous contrast. This CT exam was performed using one or more of the following dose reduction techniques: automated exposure control, adjustment of the mA and/or kV according to patient size, and/or use of iterative reconstruction technique. CONTRAST: 100 cc of Isovue-370 IV. RADIATION DOSE: CTDIvol = 16.33 mGy, DLP = 884.06 mGy-cm COMPARISON: No relevant prior studies available. FINDINGS: LOWER THORAX: Unremarkable. Lung bases are clear. No cardiomegaly. No significant pericardial effusion. ABDOMEN: LIVER: There is diffuse low-attenuation of the liver. GALLBLADDER AND BILE DUCTS: Unremarkable. No calcified gallstones. No gallbladder distention or wall edema. No intra- or extrahepatic biliary ductal dilation. PANCREAS: Unremarkable. No focal cystic or solid mass. SPLEEN: Unremarkable. Normal size without focal cystic or solid mass. ADRENALS: Unremarkable. No nodules. KIDNEYS AND URETERS: Unremarkable. Normal renal size and position. No hydronephrosis. STOMACH AND BOWEL: Unremarkable. No stomach or bowel distention. No focal inflammatory change. PELVIS: APPENDIX: No evidence of acute appendicitis. BLADDER: Unremarkable. REPRODUCTIVE: Unremarkable as visualized. No mass. ABDOMEN and PELVIS: INTRAPERITONEAL SPACE: Unremarkable. No ascites or other fluid collection. No free air. BONES/JOINTS: Unremarkable. No suspicious lytic or blastic abnormality. SOFT TISSUES: Unremarkable. No discrete abdominal or pelvic wall hernia. VASCULATURE: Unremarkable. Abdominal aorta is non-dilated. LYMPH NODES: Unremarkable. No enlarged lymph nodes. CT/Abdomen/Pelvis W IV Cont ONLY IMPRESSION: 1. Fatty liver. 2. No acute abdominal pelvic abnormality. Electronically Signed: Silviano Hernandez MD at 1:40 EDT , CC: Dr. Deion Butler MD; No [facility] Representative: Signed Normal [facility] Absolute lymphocyte countOrd ered By: Deion Butler on 04-28-2023 Lymphocytes Auto (Unsp spec) [#/Vol] 3.14 10*3/uL 0.83-4.51 [facility] Automated lymphocyte count a s percentage of total leukocytesOrdered By: Deion Butler on 04-28-2023 Lymphocytes/100 WBC Auto (Unsp spec) 34.1 % 19-41 [facility] Basophil percentageOrdered B y: Deion Butler on 04-28-2023 Basophil percentage 0 SEEN /hpf 0-5 [facility] [facility] Basophils/100 WBC (Bld) 0.5 % 0-1 [facility] Bilirubin [Mass/Vol] 1.00 mg/dL 0.20-1.[address] [facility] Comment on above: For patients on eltr ombopag therapy, use of Dimension Fosters TBIL is not recommended. Chloride [Moles/Vol] 111 mmol/L 98-[address] [facility] Eosinophils/100 WBC (Bld) 2.3 % 0-5 [facility] Glucose [Mass/Vol] 120 mg/dL 74-106 [facility] Comment on above: Fasting Glucose resu lt from 100 to 125 mg/dL suggests IMPAIRED HOMEOSTASIS per A.D.A. criteria. Hemoglobin (Bld) [Mass/Vol] 15.5 g/dL 13.0-16.5 [facility] Monocytes/100 WBC (Bld) 5.8 % 0-10 [facility] Neutrophils (Bld) [#/Vol] 5.2 10*3/uL 2.0-7.7 [facility] Neutrophils/100 WBC (Bld) 56.0 % 47-70 [facility] Potassium [Moles/Vol] 3.3 mmol/L 3.5-5.1 [facility] Protein [Mass/Vol] 7.5 g/dL 6.4-8.2 [facility] Sodium [Moles/Vol] 143 mmol/L 136-145 [facility] WBC (Bld) [#/Vol] 9.2 10*3/uL 4.4-11.0 [facility] Bilirubin Test strip Ql (U)O rdered By: Deion Butler on 04-28-2023 Bilirubin Ql (U) Negative Negative [facility] CBC W/Diff, Automatedon 04-15 Absolute Lymph 3.14 X10 3/uL Normal 0.83-4.51 [facility] Comment on above: Performed By: #### L 100.0100, L501.2450, L500.4050 #### [facility] [address] [place], [address] Absolute Neut 5.2 X10 3/uL Normal 2.0-7.7 [facility] Comment on above: Performed By: #### L 100.0100, L501.2450, [id number] #### [facility] [address] [place], [address] Basophils/100 WBC (Bld) 0.5 % Normal 0-1 [facility] Comment on above: Performed By: #### L 100.0100, L501.2450, [id number] #### [facility] [address] [place], [address] Eosinophils/100 WBC (Bld) 2.3 % Normal 0-5 [facility] Comment on above: Performed By: #### L 100.0100, L501.2450, [id number] #### [facility] [address] [place], [address] Erythrocyte distribution width (RBC) [Ratio] 12.3 % Normal 11.6-14.6 [facility] Comment on above: Performed By: #### L 100.0100, L501.2450, L500.4050 #### [facility] [address] [place], [address] Hematocrit (Bld) [Volume fraction] 45.1 % Normal 40-54 [facility] Comment on above: Performed By: #### L 100.0100, L501.2450, L500.4050 #### [facility] [address] [place], [address] Hemoglobin (Bld) [Mass/Vol] 15.5 g/dL Normal 13.0-16.5 [facility] Comment on above: Performed By: #### L 100.0100, L501.2450, L500.4050 #### [facility] [address] [place], [address] IG% 1.300 High 0.0-0.9 [facility] Comment on above: Result Comment: IG% - Immature Granulocytes (promyelocytes, myelocytes and metamyelocytes) > 1% indicates that a LEFT SHIFT is Present. Performed By: #### L 100.0100, L501.2450, L500.4050 #### [facility] [address] [place], [address] Lymphocytes/100 WBC (Bld) 34.1 % Normal 19-41 [facility] Comment on above: Performed By: #### L 100.0100, L501.2450, L500.4050 #### [facility] [address] [place], [address] MCH (RBC) [Entitic mass] 28.5 pg Normal 27.0-32.0 [facility] Comment on above: Performed By: #### L 100.0100, L501.2450, L500.4050 #### [facility] [address] [place], [address] MCHC (RBC) [Mass/Vol] 34.4 g/dL Normal 32-36 [facility] Comment on above: Performed By: #### L 100.0100, L501.2450, L500.4050 #### [facility] [address] [place], [address] MCV (RBC) [Entitic vol] 83.1 fL Normal 80-94 [facility] Comment on above: Performed By: #### L 100.0100, L501.2450, L500.4050 #### [facility] [address] [place], [address] Monocytes/100 WBC (Bld) 5.8 % Normal 0-10 [facility] Comment on above: Performed By: #### L 100.0100, L501.2450, L500.4050 #### [facility] [address] [place], [address] Neutrophils/100 WBC (Bld) 56.0 % Normal 47-70 [facility] Comment on above: Performed By: #### L 100.0100, L501.2450, L500.4050 #### [facility] [address] [place], [address] Nucleated RBC (Bld) [#/Vol] 0 10*3/uL Normal 0-5 [facility] Comment on above: Performed By: #### L 100.0100, L501.2450, L500.4050 #### [facility] [address] [place], [address] Platelet mean volume (Bld) [Entitic vol] 9.3 fL Normal 6.2-12.0 [facility] Comment on above: Performed By: #### L 100.0100, L501.2450, L500.4050 #### [facility] [address] [place], [address] Platelets (Bld) [#/Vol] 342 10*3/uL Normal 150-450 [facility] Comment on above: Performed By: #### L 100.0100, L501.2450, L500.4050 #### [facility] [address] [place], [address] RBC (Bld) [#/Vol] 5.43 10*6/uL Normal 4.6-6.2 [facility] Comment on above: Performed By: #### L 100.0100, L501.2450, L500.4050 #### [facility] [address] [place], [address] RDW SD 37.2 fl Normal 35.1-43.9 [facility] Comment on above: Performed By: #### L 100.0100, L501.2450, L500.4050 #### [facility] [address] [place], [address] WBC (Bld) [#/Vol] 9.2 10*3/uL Normal 4.4-11.0 [facility] Comment on above: Performed By: #### L 100.0100, L501.2450, L500.4050 #### [facility] [address] [place], [address] Comprehensive Metabolic Prof ilon 04-28-2023 Albumin [Mass/Vol] 4.4 g/dL Normal 3.2-5.0 [facility] Comment on above: Performed By: #### L 100.0100, L501.2450, L500.4050 #### [facility] [address] [place], [address] Albumin/Globulin [Mass ratio] 1.4 {ratio} Normal 0.9-2.4 [facility] Comment on above: Performed By: #### L 100.0100, L501.2450, L500.4050 #### [facility] [address] [place], [address] ALK P 53 U/L Normal 45-117 [facility] Comment on above: Performed By: #### L 100.0100, L501.2450, L500.4050 #### [facility] [address] [place], [address] ALT [Catalytic activity/Vol] 106 U/L High 16-61 [facility] Comment on above: Performed By: #### L 100.0100, L501.2450, L500.4050 #### [facility] [address] [place], [address] AST [Catalytic activity/Vol] 40 U/L High 15-37 [facility] Comment on above: Performed By: #### L 100.0100, L501.2450, L500.4050 #### [facility] [address] [place], [address] Bilirubin [Mass/Vol] 1.00 mg/dL Normal 0.20-1.[address] [facility] Comment on above: Result Comment: For patients on eltrombopag therapy, use of Dimension Fosters TBIL is not recommended. Performed By: #### L 100.0100, L501.2450, L500.4050 #### [facility] [address] [place], [address] BUN/CRE 13.3 RATIO Normal 10-20 [facility] Comment on above: Performed By: #### L 100.0100, L501.2450, L500.4050 #### [facility] [address] [place], [address] CA,Total 9.2 mg/dL Normal 8.5-10.1 [facility] Comment on above: Performed By: #### L 100.0100, L501.2450, L500.4050 #### [facility] [address] [place], [address] Chloride [Moles/Vol] 111 mmol/L High 98-[address] [facility] Comment on above: Performed By: #### L 100.0100, L501.2450, L500.4050 #### [facility] [address] [place], [address] CO2 [Moles/Vol] 25.0 mmol/L Normal 21.0-32.0 [facility] Comment on above: Performed By: #### L 100.0100, L501.2450, L500.4050 #### [facility] [address] [place], [address] Creatinine [Mass/Vol] 1.13 mg/dL Normal 0.70-1.30 [facility] Comment on above: Result Comment: The validity of the calculated GFR GFRAA in patients over 70 years has not been determined. Clinical correlation is essential. Performed By: #### L 100.0100, L501.2450, L500.4050 #### [facility] [address] [place], [address] ECRCL 92.55 ml/min Normal [facility] Comment on above: Performed By: #### L 100.0100, L501.2450, L500.4050 #### [facility] [address] [place], [address] EST GFR - AA 92 mL/min Normal >60 [facility] Comment on above: Result Comment: Afri can Mosotho GFR Calc Performed By: #### L 100.0100, L501.2450, L500.4050 #### [facility] [address] [place], [address] GAP 7 Normal 5-15 [facility] Comment on above: Performed By: #### L 100.0100, L501.2450, L500.4050 #### [facility] [address] [place], [address] GFR/1.73 sq M.predicted among non-blacks MDRD (S/P/Bld) [Vol rate/Area] 76 mL/min/{1.73_m2} Normal >[address] [facility] Comment on above: Result Comment: Non- GFR Calc Performed By: #### L 100.0100, L501.2450, L500.4050 #### [facility] [address] [place], [address] Globulin (S) [Mass/Vol] 3.1 g/dL Normal 2.2-4.2 [facility] Comment on above: Performed By: #### L 100.0100, L501.2450, L500.4050 #### [facility] [address] [place], [address] Glucose [Mass/Vol] 120 mg/dL High 74-106 [facility] Comment on above: Result Comment: Fast ing Glucose result from 100 to 125 mg/dL suggests IMPAIRED HOMEOSTASIS per A.D.A. criteria. Performed By: #### L 100.0100, L501.2450, L500.4050 #### [facility] [address] [place], [address] Potassium [Moles/Vol] 3.3 mmol/L Low 3.5-5.1 [facility] Comment on above: Performed By: #### L 100.0100, L501.2450, L500.4050 #### [facility] [address] [place], [address] Sodium [Moles/Vol] 143 mmol/L Normal 136-145 [facility] Comment on above: Performed By: #### L 100.0100, L501.2450, L500.4050 #### [facility] [address] [place], [address] T PROT 7.5 g/dL Normal 6.4-8.2 [facility] Comment on above: Performed By: #### L 100.0100, L501.2450, L500.4050 #### [facility] [address] [place], [address] Urea nitrogen [Mass/Vol] 15 mg/dL Normal 7-18 [facility] Comment on above: Performed By: #### L 100.0100, L501.2450, L500.4050 #### [facility] [address] [place], [address] Determination of erythrocyte mean corpuscular volume (MCV)Ordered By: Deion Butler on 04-28-2023 MCV (RBC) [Entitic vol] 83.1 fL 80-94 [facility] Emergency Department Summary on 04-28-2023 Emergency Department Summary [facility] Medical Records Department [address] [place] [address] Emergency Department Summary 04/28/23 MR#: [id number] Acct: [id number] Name: ROEL ROSE Rep #: [id number] : 1985 38 From: Deion Butler MD PCP: Care Physician,No Primary Status:REG ER Location: ED HPI HPI - GI History of Present Illness Chief Complaint: Constipation Informant: patient Narrative Narrative: Patient states he has been having abdominal discomfort, bloating, constipation for up to about a month, and nonspecific abdominal "problems" for maybe up to a year. He saw his doctor, was referred to GI with whom he has not had the appointment yet, he is post to see Dr. Yu next week, however in the past couple days everything is worse, he cannot keep anything down, is vomiting without blood or bilious emesis. Initially he was having just very hard stools despite Ex-Lax and stool softeners, then he would intermittently have bouts of watery diarrhea and abdominal cramping and then back to constipation again. In the last week or so, he feels like he needs to go but cannot other than very small amounts of loose stool. [facility] Medical History (Updated 04/28/23 @ 02:[address] Deion Butler MD) Chronic pain after traumatic injury Home Medications dicyclomine 20 mg tablet 20 mg PO TID PRN abdominal pain #20 tabs 08/25/21 [Rx Last Taken Unknown] hydrocodone-acetami nophen 5-325mg 5mg-325mg 1 tab PO Q6H PRN PRN Pain 3 days #12 TABLETS 08/25/21 [Rx Last Taken Unknown] ondansetron 4 mg disintegrating tablet 4 mg PO Q6H PRN PRN Nausea #15 tabs 08/25/21 [Rx Last Taken Unknown] cyclobenzaprine 10 mg tablet 10 mg PO Q8H PRN PRN muscle spasm 04/28/23 [History Last Taken Unknown] hyoscyamine sulfate 0.125 mg disintegrating tablet 0.125 mg PO Q6H PRN abdominal discomfort #20 tabs 04/28/23 [Rx Last Taken Unknown] Allergy/AdvReac Type Severity Reaction Status Date / Time codeine Allergy Mild Chest Verified 04/27/23 23:42 tightness Surgical History Hx of appendectomy Social History Smoking Status: Former smoker substance use type: does not use ROS ROS ED Constitutional Constitutional ED: Denies chills or fever(s) Eyes Eyes: Denies change in vision or diplopia ENT ENT ED: Denies rhinorrhea or sore throat Cardiovascular Cardiovascular: Denies chest pain or palpitations Respiratory/Chest Respiratory/Chest: Denies cough or dyspnea Gastrointestinal Gastrointestinal: Reports abdominal pain, constipation, diarrhea, nausea and vomiting; Denies melena Genitourinary Genitourinary ED: Denies dysuria or hematuria Musculoskeletal Musculoskeletal: Denies back pain or neck pain Integumentary Denies abscess or rash Neurologic Neurologic: Denies headache(s), paresthesias or weakness Psychiatric Psychiatric: Denies anxiety or suicidal thoughts EXAM Physical Exam Const Vital Signs: 04/27/23 23:43 04/28/23 00:19 04/28/23 02:00 Temperature 96.5 F L Temperature Source Temporal Pulse Rate 87 66 80 Respiratory Rate 18 18 16 Blood Pressure 139/105 H 134/92 H 121/92 H Blood Pressure Mean 116 106 101 Pulse Ox 96 100 100 Oxygen Delivery Method Room Air Room Air Room Air Positive well nourished and well developed General Appearance ED: well developed and NAD HEENT Reports moist mucous membranes normocephalic and atraumatic Eyes PERRL and EOMs intact bilaterally Neck full ROM and supple Resp normal respiratory effort and clear to auscultation bilaterally Cardio regular rate, regular rhythm and no murmurs GI GI Narrative: Distended abdomen with hypoactive bowel sounds but an occasional tinkle. Tender right lower quadrant and across the upper abdomen. Palpation: soft Back/Spine no CVA tenderness General Back: other FROM Extremity normal to inspection General Extremety ED: Negative for edema, pulses abnormal or tenderness General Extremity: Negative for edema or pulses abnormal Neuro oriented x3, CN's II-XII intact bilaterally and no sensory deficits noted Sensorium / Orientation: awake and alert Motor Exam: strength 5/5 throughout Psych mental status grossly normal and thought process normal Skin no rashes or lesions noted and no wounds MDM MDM MDM Narrative Medical decision making narrative: We discussed treating constipation, however they are thinking this is something different. With the intermittent nature of the consistency of his stools, certainly encopresis is in the differential, but this may also be something different like colitis, irritable bowel syndrome, inflammatory bowel disease. Therefore prior to his specific treatment, he is amenable to CT and labs. This was done. I review (more content not included)... Normal [facility] Erythrocyte distribution wid th ratioOrdered By: Deion Butler on 04-28-2023 Erythrocyte distribution width (RBC) [Ratio] 12.3 % 11.6-14.6 [facility] Erythrocyte distribution wid th standard deviationOrdered By: Deion Butler on 04-28-2023 Erythrocyte distribution width (RBC) [Entitic vol] 37.2 fL 35.1-43.9 [facility] Hematocrit Auto (Bld) [Volum e fraction]Ordered By: Deion Butler on 04-28-2023 Hematocrit (Bld) [Volume fraction] 45.1 % 40-54 [facility] Immature granulocytes/100 WB C Auto (Bld)Ordered By: Deion Butler on 04-28-2023 Immature granulocytes/100 WBC (Bld) 1.300 % 0.0-0.9 [facility] Comment on above: IG% - Immature Granu locytes (promyelocytes, myelocytes and metamyelocytes) > 1% indicates that a LEFT SHIFT is Present. Ketones Test strip Ql (U)Ord ered By: Deion Butler on 04-28-2023 Ketones Ql (U) 50 mg/dl Negative [facility] - Chemistry and C hemistry - challengeOrdered By: Deion Butler on 04-28-2023 Albumin/Globulin [Mass ratio] 1.4 {ratio} 0.9-2.4 [facility] ALP [Catalytic activity/Vol] 53 U/L 45-117 [facility] ALT [Catalytic activity/Vol] 106 U/L 16-61 [facility] CO2 [Moles/Vol] 25.0 mmol/L 21.0-32.0 [facility] Globulin (S) [Mass/Vol] 3.1 g/dL 2.2-4.2 [facility] Lipase [Catalytic activity/Vol] 48 U/L 13-75 [facility] Comment on above: Please note:LIPASE r evised reference range effective 22. New Lipase methodology. Expected to produce lower values than the previous assay method. NEW Reference Range: 13 - 75 U/L Urea nitrogen/Creatinine [Mass ratio] 13.3 mg/mg 10-20 [facility] - Hematology and Cell countsOrdered By: Deion Butler on 04-28-2023 MCH (RBC) [Entitic mass] 28.5 pg 27.0-32.0 [facility] MCHC (RBC) [Mass/Vol] 34.4 g/dL 32-36 [facility] Nucleated RBC/100 WBC (Bld) [Ratio] 0 % 0-5 [facility] Platelet mean volume (Bld) [Entitic vol] 9.3 fL 6.2-12.0 [facility] Platelets (Bld) [#/Vol] 342 10*3/uL 150-450 [facility] Lipaseon 04-28-2023 Lipase [Catalytic activity/Vol] 48 U/L Normal 13-75 [facility] Comment on above: Result Comment: Plea se note: LIPASE revised reference range effective 22. New Lipase methodology. Expected to produce lower values than the previous assay method. NEW Reference Range: 13 - 75 U/L Performed By: #### L 100.0100, L501.2450, L500.4050 #### [facility] [address] [place], [address] Mucus LM Ql (Urine sed)Order ed By: Deion Butler on 04-28-2023 Mucus Ql (Urine sed) 0 SEEN /hpf [facility] Nitrite Test strip Ql (U)Ord ered By: Deion Butler on 04-28-2023 Nitrite Ql (U) Negative Negative [facility] No Panel InformationOrdered By: Deion Butler on 04-28-2023 Estimated Creatinine Clearance Calc 92.55 ml/min [facility] Estimated GFR (MDRD) Amer 92 mL/min >60 [facility] Comment on above: GFR Calc Estimated GFR (MDRD) Non-Af Amer 76 mL/min >60 [facility] Comment on above: Non- GFR Calc Urine RBC 0 SEEN /hpf 0-5 [facility] Protein Test strip Ql (U)Ord ered By: Deion Butler on 04-28-2023 Protein Ql (U) Negative Negative [facility] RBC Auto (Bld) [#/Vol]Ordere d By: Deion Butler on 04-28-2023 RBC (Bld) [#/Vol] 5.43 10*6/uL 4.6-6.2 [facility] Serum or plasma calcium margaret urement (mass/volume)Ordered By: Deion Butler on 04-28-2023 Calcium [Mass/Vol] 9.2 mg/dL 8.5-10.1 [facility] Serum or plasma creatinine m easurement (mass/volume)Ordered By: Deion Butler on 04-28-2023 Creatinine [Mass/Vol] 1.13 mg/dL 0.70-1.30 [facility] Comment on above: The validity of the calculated GFR & GFRAA in patients over 70 years has not been determined. Clinical correlation is essential. Serum or plasma urea nitroge n measurement (mass/volume)Ordered By: Deion Butler on 04-28-2023 Urea nitrogen [Mass/Vol] 15 mg/dL 7-18 [facility] Squamous epithelial cells de tection in urine sediment by light microscopyOrdered By: Deion Butler on 04-28-2023 Epithelial cells.squamous LM Ql (Urine sed) 0 SEEN /hpf 0-5 [facility] Thin prep Papanicolaou smear with manual screeningOrdered By: Deion Butler on 04-28-2023 Thin prep Papanicolaou smear with manual screening 4.4 g/dL 3.2-5.0 [facility] Thin prep Papanicolaou smear with manual screening 40 U/L 15-37 [facility] Thin prep Papanicolaou smear with manual screening 7 5-15 [facility] Urinalysis, Completeon 04-27 BACTERIA 0 SEEN Normal None Seen [facility] Comment on above: Order Comment: CLEAN CATCH Performed By: #### L 400.0001 #### [facility] [address] [place], [address] EPI,SQUAMOUS 0 SEEN Normal 0-5 [facility] Comment on above: Order Comment: CLEAN CATCH Performed By: #### L 400.0001 #### [facility] [address] [place], [address] Mucus Ql (Urine sed) 0 SEEN Normal [facility] Comment on above: Order Comment: CLEAN CATCH Performed By: #### L 400.0001 #### [facility] [address] [place], [address] RBC 0 SEEN Normal 0-[address] [place] [address] Comment on above: Order Comment: CLEAN CATCH Performed By: #### L 400.0001 #### [facility] [address] [place], [address] WBC 0 SEEN Normal 0-[address] [place] [address] Comment on above: Order Comment: CLEAN CATCH Performed By: #### L 400.0001 #### [facility] [address] [place], [address] Urine blood detectionOrdered By: Deion Butler on 04-28-2023 RBC Ql (U) Negative Negative [facility] Urine clarityOrdered By: Svetlana Butler on 04-28-2023 Clarity (U) Clear Clear [facility] Urine color determinationOrd ered By: Deion Butler on 04-28-2023 Color (U) Yellow Yellow [facility] Urine glucose detectionOrder ed By: Deion Butler on 04-28-2023 Glucose Ql (U) Normal mg/dl Normal [facility] Urine leukocyte esterase det ection by dipstickOrdered By: Deion Butler on 04-28-2023 Leukocyte esterase Test strip Ql (U) Negative Negative [facility] Urine pHOrdered By: Deion Butler on 04-28-2023 pH (U) 5.0 [pH] 5.0 - 8.0 [facility] Urine sediment bacteria coun t by microscopy (number/high power field)Ordered By: Deion Butler on 04-28-2023 Bacteria LM.HPF (Urine sed) [#/Area] 0 /[HPF] None Seen [facility] Urine specific gravity measu rementOrdered By: Deion Butler on 04-28-2023 Specific gravity (U) [Rel density] 1.020 1.002-1.030 [facility] Urine urobilinogen measureme ntOrdered By: Deion Butler on 04-28-2023 Urobilinogen Ql (U) Normal mg/dl Normal [facility] Absolute lymphocyte counton 08-25-2021 Lymphocytes Auto (Unsp spec) [#/Vol] 2.05 10*3/uL 0.83-4.51 [facility] Work Phone: Basophil percentageon 2021 Basophils/100 WBC (Bld) 0.3 % 0-1 [facility] Work Phone: Bilirubin [Mass/Vol] 0.40 mg/dL 0.20-1.[address] [facility] Work Phone: Comment on above: For patients on eltr ombopag therapy, use of Dimension Fosters TBIL is not recommended. Chloride [Moles/Vol] 108 mmol/L 98-[address] [facility] Work Phone: Eosinophils/100 WBC (Bld) 1.5 % 0-5 [facility] Work Phone: Glucose [Mass/Vol] 101 mg/dL 74-106 [facility] Work Phone: Comment on above: Fasting Glucose resu lt from 100 to 125 mg/dL suggests IMPAIRED HOMEOSTASIS per A.D.A. criteria. Neutrophils (Bld) [#/Vol] 4.6 10*3/uL 2.0-7.7 [facility] Work Phone: Neutrophils/100 WBC (Bld) 63.6 % 47-70 [facility] Work Phone: Potassium [Moles/Vol] 3.9 mmol/L 3.5-5.1 [facility] Work Phone: Protein [Mass/Vol] 7.4 g/dL 6.4-8.2 [facility] Work Phone: Sodium [Moles/Vol] 142 mmol/L 136-145 [facility] Work Phone: WBC (Bld) [#/Vol] 7.2 10*3/uL 4.4-11.0 [facility] Work Phone: Blood erythrocytes count (nu mber/volume)on 08-25-2021 RBC (Bld) [#/Vol] 5.09 10*6/uL 4.6-6.2 [facility]: Blood hemoglobin measurement (mass/volume)on 08-25-2021 Hemoglobin (Bld) [Mass/Vol] 14.7 g/dL 13.0-16.5 [facility] Work Phone: Blood lymphocytes/100 leukoc yteson 08-25-2021 Lymphocytes/100 WBC (Bld) 28.6 % 19-41 [facility] Work Phone: Blood monocytes/100 leukocyt eson 08-25-2021 Monocytes/100 WBC (Bld) 5.7 % 0-10 [facility] Work Phone: Blood platelet mean volumeon 08-25-2021 Platelet mean volume (Bld) [Entitic vol] 9.0 fL 6.2-12.0 [facility] Work Phone: Determination of erythrocyte mean corpuscular volume (MCV)on 08-25-2021 MCV (RBC) [Entitic vol] 84.5 fL 80-94 [facility] Work Phone: Hematocrit Auto (Bld) [Volum e fraction]on 08-25-2021 Hematocrit (Bld) [Volume fraction] 43.0 % 40-54 [facility] Work Phone: Laboratory - Chemistry and C hemistry - challengeon 08-25-2021 ALP [Catalytic activity/Vol] 63 U/L 45-117 [facility] Work Phone: [phone] ALT [Catalytic activity/Vol] 59 U/L 16-61 [facility] Work Phone: [phone] CO2 [Moles/Vol] 26.0 mmol/L 21.0-32.0 [facility] Work Phone: [phone] Globulin (S) [Mass/Vol] 3.3 g/dL 2.2-4.2 [facility] Work Phone: [phone] Lipase [Catalytic activity/Vol] 133 U/L 73-393 [facility] Work Phone: Urea nitrogen/Creatinine [Mass ratio] 14.0 mg/mg 10-20 [facility] Work Phone: Laboratory - Hematology and Cell countson 08-25-2021 Erythrocyte distribution width (RBC) [Entitic vol] 37.7 fL 35.1-43.9 [facility] Work Phone: Erythrocyte distribution width (RBC) [Ratio] 12.4 % 11.6-14.6 [facility] Work Phone: Immature granulocytes/100 WBC (Bld) 0.300 % 0.0-0.9 [facility] Work Phone: Comment on above: IG% - Immature Granu locytes (promyelocytes, myelocytes and metamyelocytes) > 1% indicates that a LEFT SHIFT is Present. MCH (RBC) [Entitic mass] 28.9 pg 27.0-32.0 [facility] Work Phone: Nucleated RBC/100 WBC (Bld) [Ratio] 0 % 0-5 [facility] Work Phone: MCHC Auto (RBC) [Mass/Vol]on 08-25-2021 MCHC (RBC) [Mass/Vol] 34.2 g/dL 32-36 [facility] Work Phone: No Panel Informationon 08-25 Estimated Creatinine Clearance Calc 99.70 ml/min [facility] Work Phone: Estimated GFR (MDRD) Amer 99 mL/min >60 [facility] Work Phone: Comment on above: GFR Calc Estimated GFR (MDRD) Non-Af Amer 82 mL/min >60 [facility] Work Phone: Comment on above: Non- GFR Calc Platelets bldon 08-25-2021 Platelets (Bld) [#/Vol] 374 10*3/uL 150-450 [facility] Work Phone: Serum or plasma albumin margaret urement (mass/volume)on 08-25-2021 Albumin [Mass/Vol] 4.1 g/dL 3.2-5.0 [facility] Work Phone: Serum or plasma albumin/glob ulin mass ratioon 08-25-2021 Albumin/Globulin [Mass ratio] 1.2 {ratio} 0.9-2.4 [facility] Work Phone: Serum or plasma calcium margaret urement (mass/volume)on 08-25-2021 Calcium [Mass/Vol] 9.3 mg/dL 8.5-10.1 [facility] Work Phone: Serum or plasma creatinine m easurement (mass/volume)on 08-25-2021 Creatinine [Mass/Vol] 1.07 mg/dL 0.70-1.30 [facility] Work Phone: Comment on above: The validity of the calculated GFR & GFRAA in patients over 70 years has not been determined. Clinical correlation is essential. Serum or plasma urea nitroge n measurement (mass/volume)on 08-25-2021 Urea nitrogen [Mass/Vol] 15 mg/dL 7-18 [facility] Work Phone: Thin prep Papanicolaou smear with manual screeningon 08-25-2021 Thin prep Papanicolaou smear with manual screening 26 U/L 15-37 [facility] Work Phone: Thin prep Papanicolaou smear with manual screening 8 5-15 [facility] Work Phone: No Panel Informationon 01-23 Radiology Study observation (narrative) [facility] XR Lumbar spine 3 Viewson IMPRESSION: Negative lumbar spine X-ray. Medical Center Representative: DORYS Transcribe Date/Time: Jan 23 2021 8:42A Dictated by : JUANY MILLARD MD This examination was interpreted and the report reviewed and electronically signed by: JUANY MILLARD MD on Jan 23 2021 8:46AM [facility] DIVISION OF RADIOLOGY * * *Final Report* * * DATE OF EXAM: Jan 23 2021 8:38AM WOX [id number] - XR LUMBAR 3V AP/LAT/L5-S1 / PROCEDURE REASON: Injury of back, initial encounter * * * * Physician Interpretation * * * * EXAM TITLE: XR LUMBAR 3V AP/LAT/L5-S1 EXAM DATE/TIME: 01/23/2021 8:38 AM COMPARISON: None. CLINICAL INDICATION/HISTORY: Injury. TECHNIQUE: AP, lateral and cone down lateral views of the lumbar spine are presented. FINDINGS: There are five ubc-aon-trafhui lumbar vertebrae. No acute fracture or subluxations are noted. The disc spaces are well preserved. There is no significant osteophyte formation. DIVISION OF RADIOLOGY Provider, [facility] - 01/23/2021 * * *Final Report* * * DATE OF EXAM: Jan 23 2021 8:38AM WOX 5228 - XR LUMBAR 3V AP/LAT/L5-S1 / PROCEDURE REASON: Injury of back, initial encounter * * * * Physician Interpretation * * * * EXAM TITLE: XR LUMBAR 3V AP/LAT/L5-S1 EXAM DATE/TIME: 01/23/2021 8:38 AM COMPARISON: None. CLINICAL INDICATION/HISTORY: Injury. TECHNIQUE: AP, lateral and cone down lateral views of the lumbar spine are presented. FINDINGS: There are five nyg-prq-rymblon lumbar vertebrae. No acute fracture or subluxations are noted. The disc spaces are well preserved. There is no significant osteophyte formation. IMPRESSION IMPRESSION: Negative lumbar spine X-ray. Medical Center Representative: PSCB Transcribe Date/Time: Jan 23 2021 8:42A Dictated by : JUANY MILLARD MD This examination was interpreted and the report reviewed and electronically signed by: JUANY MILLARD MD on Jan 23 2021 8:46AM EST [facility] XR Thoracic spine AP and Lat [facility] 01-23-2021 IMPRESSION: Negative thoracic spine X-ray. Medical Center Representative: PSC Transcribe Date/Time: Jan 23 2021 8:43A Dictated by : JUANY MILLARD MD This examination was interpreted and the report reviewed and electronically signed by: JUANY MILLARD MD on Jan 23 2021 8:45AM EST DIVISION OF RADIOLOGY * * *Final Report* * * DATE OF EXAM: Jan 23 2021 8:38AM WOX 5262 - XR THORACIC 2V AP/LAT / PROCEDURE REASON: Injury of back, initial encounter * * * * Physician Interpretation * * * * EXAM TITLE: XR THORACIC 2V AP/LAT EXAM DATE/TIME: 01/23/2021 8:38 AM COMPARISON: None. CLINICAL INDICATION/HISTORY: Injury. TECHNIQUE: AP, swimmer's and lateral views of the thoracic spine are presented FINDINGS: No acute fractures or subluxations are noted. The disc spaces are well preserved. There is no paraspinal mass or bony destructive process. DIVISION OF RADIOLOGY Provider, [facility] - 01/23/2021 * * *Final Report* * * DATE OF EXAM: Jan 23 2021 8:38AM WOX 5262 - XR THORACIC 2V AP/LAT / PROCEDURE REASON: Injury of back, initial encounter * * * * Physician Interpretation * * * * EXAM TITLE: XR THORACIC 2V AP/LAT EXAM DATE/TIME: 01/23/2021 8:38 AM COMPARISON: None. CLINICAL INDICATION/HISTORY: Injury. TECHNIQUE: AP, swimmer's and lateral views of the thoracic spine are presented FINDINGS: No acute fractures or subluxations are noted. The disc spaces are well preserved. There is no paraspinal mass or bony destructive process. IMPRESSION IMPRESSION: Negative thoracic spine X-ray. Medical Center Representative: PSCB Transcribe Date/Time: Jan 23 2021 8:43A Dictated by : JUANY MILLARD MD This examination was interpreted and the report reviewed and electronically signed by: JUANY MILLARD MD on Jan 23 2021 8:45AM EST [facility] XR Thoracic spine AP and Lat eralOrdered By: Ccf Provider on 01-23-2021 [facility] Vital Signs Date Time Vital Sign Value Performing Clinician Facility 11-24-2023 10:25-0400 Body temperature 100.6 [degF] Sujata Lalo BODY CLEANER[employer] Work Phone: [facility] 11-24-2023 10:25-0400 Body weight 86.2 kg Sujata May BODY CLEANER.PEER SPECIALIST Work Phone: [facility] 11-24-2023 10:25-0400 Diastolic blood pressure 93 mm[Hg] Sujata May BODY CLEANER.[employer]ER SPECIALIST Work Phone: [facility] 11-24-2023 10:25-0400 Heart rate 128 /min Sujata May BODY CLEANER.[employer] SPECIALIST Work Phone: [facility] 11-24-2023 10:25-0400 Respiratory rate 20 /min Sujata Lalo BODY CLEANER.[employer]ER SPECIALIST Work Phone: [facility] 11-24-2023 10:25-0400 SaO2% (BldA) [Mass fraction] 98 % Sujata May BODY CLEANER.PEER SPECIALIST Work Phone: [facility] 11-24-2023 10:25-0400 Systolic blood pressure 133 mm[Hg] Sujata May BODY CLEANER.PEER SPECIALIST Work Phone: [facility] 04-28-2023 03:02-0400 Body temperature 98.4 [degF] [facility] 04-28-2023 03:02-0400 Diastolic blood pressure 82 mm[Hg] [facility] 04-28-2023 03:02-0400 Heart rate 65 /min [facility] 04-28-2023 03:02-0400 Respiratory rate 18 /min [facility] 04-28-2023 03:02-0400 SaO2% (BldA) [Mass fraction] 100 % [facility] 04-28-2023 03:02-0400 Systolic blood pressure 120 mm[Hg] [facility] 04-27-2023 23:43-0400 Body height 180.34 cm [facility] 04-27-2023 23:43-0400 Body mass index (BMI) [Ratio] 25.7 kg/m2 [facility] 04-27-2023 23:43-0400 Body weight 83.91 kg [facility] 04-27-2023 18:55-0400 Body temperature 97.34 [degF] YOLIE MAYA MD [address] [place] [address] 04-27-2023 18:55-0400 Body weight 83.7 kg YOLIE MAYA MD [address] [place] [address] 04-27-2023 18:55-0400 Diastolic Blood Pressure Non-Invasive 89 mm[Hg] YOLIE MAYA MD [address] [place] [address] 04-27-2023 18:55-0400 Heart rate 101 /min YOLIE MAYA MD [address] [place] [address] 04-27-2023 18:55-0400 Respiratory rate 18 /min YOLIE MAYA MD [address] [place] [address] 04-27-2023 18:55-0400 Systolic Blood Pressure Non-Invasive 131 mm[Hg] YOLIE MAYA MD [address] [place] [address] 08-25-2021 16:01-0400 Diastolic blood pressure 77 mm[Hg] [facility] Work Phone: 08-25-2021 16:01-0400 Heart rate 62 /min [facility] Work Phone: 08-25-2021 16:01-0400 Respiratory rate 15 /min [facility] Work Phone: 08-25-2021 16:01-0400 SaO2% (BldA) [Mass fraction] 97 % [facility] Work Phone: 08-25-2021 16:01-0400 Systolic blood pressure 134 mm[Hg] [facility] Work Phone: 08-25-2021 11:56-0400 Body height 180.34 cm [facility] Work Phone: 08-25-2021 11:56-0400 Body mass index (BMI) [Ratio] 24.4 kg/m2 [facility] Work Phone: 08-25-2021 11:56-0400 Body temperature 97.6 [degF] [facility] Work Phone: 08-25-2021 11:56-0400 Body weight 79.37 kg [facility] Work Phone: 08-17-2021 08:59-0400 Body temperature 97.39 [degF] Severiano Palm BODY CLEANER.[employer]ER SPECIALIST Work Phone: [facility] 08-17-2021 08:59-0400 Body weight 83.46 kg Severiano Palm BODY CLEANER.[employer]ER SPECIALIST Work Phone: [facility] 08-17-2021 08:59-0400 Diastolic blood pressure 80 mm[Hg] Severiano Palm BODY CLEANER.[employer] SPECIALIST Work Phone: [facility] 08-17-2021 08:59-0400 Heart rate 69 /min Severiano Palm BODY CLEANER.[employer]ER SPECIALIST Work Phone: [facility] 08-17-2021 08:59-0400 Respiratory rate 16 /min Severiano Palm BODY CLEANER.PEER SPECIALIST Work Phone: [facility] 08-17-2021 08:59-0400 SaO2% (BldA) [Mass fraction] 99 % Severiano Palm BODY CLEANER.PEER SPECIALIST Work Phone: [facility] 08-17-2021 08:59-0400 Systolic blood pressure 118 mm[Hg] Severiano Palm BODY CLEANER.PEER SPECIALIST Work Phone: [facility] Encounters Encounter Date Encounter Type Care Provider Facility Start: 11-24-2023 End: 11-24-2023 ambulatory Facility:[facility] Start: 11-24-2023 End: 11-24-2023 Patient encounter procedure Sujata May APRN.PEER SPECIALIST Work Phone: [facility] [employer] [facility] Comment on above: Lower resp. tract in fection (Primary Dx); Pneumonia exposure Start: 05-05-2023 End: 05-05-2023 ambulatory Saleem Yu [facility] Work Phone: Start: 05-05-2023 End: 05-05-2023 Patient encounter procedure [facility] Work Phone: Start: 04-28-2023 End: 04-28-2023 Emergency department patient visit Deion Butler Facility:[facility] Start: 04-27-2023 End: 04-28-2023 Emergency department patient visit [facility] Work Phone: Start: 04-27-2023 End: 04-28-2023 Emergency department patient visit YOLIE MAYA Facility:[facility] Start: 04-27-2023 End: 04-27-2023 Emergency department patient visit YOLIE MAYA MD [facility] Start: 08-25-2021 End: 08-25-2021 Emergency department patient visit [facility] Start: 08-17-2021 End: 08-17-2021 Patient encounter procedure Severiano Palm APRN.PEER SPECIALIST Work Phone: [facility] [employer] [facility] Comment on above: Pain, dental (Primar y Dx) Start: 01-23-2021 End: 01-23-2021 Subsequent hospital visit by physician Xr [facility] Work Phone: Radiology Comment on above: Injury of back, init ial encounter [S39.92XA] Procedures Date Procedure Procedure Detail Performing Clinician Start: 04-28-2023 Computed tomography of abdomen and pelvis with intravenous contrast Start: 08-25-2021 Computed tomography of abdomen and pelvis with intravenous contrast Start: 01-23-2021 Radex spine thoracic 2 views Sujata Lalo BODY CLEANER.PEER SPECIALIST Work Phone: Start: 02-27-2013 Appendectomy YOLIE FREITAS MD Computed tomography scan brain - normal (finding) YOLIE MAYA MD Doppler studies YOLIE Mcrae MD Comment on above: bilateral l egs Extraction YOLIE Vidal Comment on above: wisdom teeth Magnetic resonance imaging R PRAFUL MAYA MD Surgical repair YOLIE Mcrae MD Comment on above: ACL repair Plan of Treatment Date Care Activity Detail Author Start: 10-17-2023 Covid-19 Vaccine () Covid-19 Vaccine ( season) [facility] Start: 10-17-2023 Influenza vaccination Influenza Vaccine (#1) [facility] Start: 04-28-2023 [facility] Start: 10-16-2021 Influenza vaccination INFLUENZA (#1) [facility] Start: 08-25-2021 Enteric precautions [facility] Work Phone: Start: 04-22-2018 Lipid panel Lipid Screening [facility] Start: 04-22-2018 LIPID SCREEN LIPID SCREEN [facility] Start: 04-22-2002 Hepatitis B Vaccine (1 of 3 - 19+ 3-dose series) Hepatitis B Vaccine (1 of 3 - 19+ 3-dose series) [facility] Start: 04-22-2002 Urine microalbumin profile [facility] Start: 04-22-2001 Anxiety Screening Anxiety Screening [facility] Start: 04-22-2001 Depression Screening Depression Screening [facility] Start: 04-22-2001 HEPATITIS C SCREENING HEPATITIS C SCREENING [facility] Start: 04-22-2001 Hepatitis C screening Hepatitis C Screening [facility] Start: 04-22-2001 HIV SCREENING HIV SCREENING [facility] Start: 04-22-2001 HIV screening HIV Screening [facility] Start: 1995 Adult depression screening assessment DEPRESSION SCREENING [facility] Start: 1983 COVID-19 VACCINE (#1) COVID-19 VACCINE (#1) [facility] Clostridioides diffi cile DNA [Presence] in Unspecified specimen by MONIQUE with probe detection [facility] Work Phone: Gastrointestinal pat hogens panel - Stool by MONIQUE with probe detection [facility] Work Phone: Patient Education [facility] Work Phone: Patient referral [facility] Work Phone: Payers Date Payer Category Payer Self-pay 2023 Unknown [id number] 2020 Private Health Insurance BLUE [employer]AR[employer] OAP [id number] 2020-Present [phone] [id number] [place] [id number] Open Access [id number] 2020 Private Health Insurance [id number] 1983 Unknown [id number] Private Health Insurance [id number] Unknown [id number] Unknown [facility] [id number] Unknown [id number] Unknown [id number] Social History Date Type Detail Facility Start: 08-17-2021 End: 11-24-2023 Tobacco smoking status NHIS Ex-smoker [facility] End: 02-18-2020 History of tobacco use Current smoker [facility] Start: 08-17-2021 End: 11-24-2023 Tobacco use and exposure Smokeless tobacco non-user [facility] Start: 08-17-2021 End: 11-24-2023 Alcohol intake Lifetime non-drinker (finding) [facility] Start: 06-05-2019 History SDOH Alcohol Frequency 1 [facility] Start: 1985 Sex Assigned At Not on file [facility] Start: 12-24-2020 End: 08-17-2021 Exposure to SARS-CoV-2 (event) Not sure [facility] Start: 08-25-2021 End: 04-28-2023 Tobacco smoking status [facility] Unknown if ever smoked [facility] Start: 1985 Sex Assigned At Male [facility] Sex Assigned At Sex [facility] Start: 06-05-2019 Tobacco smoking status NHIS Occasional tobacco smoker [facility] Start: 06-05-2019 End: 01-23-2020 History of Social function [facility] Start: 06-05-2019 End: 01-23-2020 Alcohol Use Disorder Identification Test - Consumption [AUDIT-C] [facility] How often to you hav e a drink containing alcohol? Never [facility] Average Number of Drinks Not on file [facility] End: 02-18-2020 History of tobacco use Cigarette Smoker [facility] Clinical Notes 01-23-2021 to 11-24-2023 Sujata May APRN.PEER SPECIALIST - 11/24/2023 10:43 AM EDT Note Date & Type Note Facility 11-24-2023 Note HNO ID: [id number] Author: SUJATA MAY APRN.PEER SPECIALIST Service: ? Author Type: Nurse Practitioner Type: Progress Notes Filed: 11/24/2023 10:54 Note Text: Subjective HPI HPI Roel Rose is a 38 year old male who presents today for CC of cough, fever, congestion. This started 5 days ago/worsening. Has tried otc medication for relief. Symptoms are worsened by nothing. Risk factors pneumonia exposure at home. Nonsmoker. .Patient presents with: Fever: Cough, chest congestion, [place], bodyaches x5 days, exposure to pneumonia No past medical history on file. PAST SURGICAL HISTORY Procedure Laterality Date PAST SURGICAL HISTORY OF multiple knee surgeries ALLERGIES Codeine MEDICATIONS omeprazole (PRILOSEC) 20 mg capsule Take 20 mg by mouth once daily. cyclobenzaprine (FLEXERIL) 10 mg tablet Take 1 tablet by mouth three times daily as needed for muscle spasm. naproxen sodium (ALEVE) 220 mg cap Take by mouth as needed. (Patient not taking: Reported on 11/24/2023) FAMILY HISTORY Problem Relation Age of Onset Heart disease Father Hypertension Father Social History Tobacco Use Smoking status: Former Current packs/day: 0.00 Types: Cigarettes Quit date: 02/18/2020 Years since quittin.7 Smokeless tobacco: Never Substance Use Topics Alcohol use: Never Drug use: Never Review of Systems Constitutional: Positive for chills, fever and malaise/fatigue. HENT: Positive for congestion and sinus pain. Negative for ear pain, nosebleeds and sore throat. Respiratory: Positive for cough and sputum production. Negative for shortness of breath and wheezing. Cardiovascular: Negative for chest pain. Musculoskeletal: Negative for neck pain. Skin: Negative for itching and rash. Objective Blood pressure 133/93, pulse (!) 128, temperature (!) 38.1 ?C (100.6 ?F), resp. rate 20, weight 86.2 kg (190 lb 0.6 oz), SpO2 98%. Physical Exam Constitutional: General: He is not in acute distress. Appearance: He is not toxic-appearing or diaphoretic. HENT: Head: Normocephalic and atraumatic. Cardiovascular: Rate and Rhythm: Normal rate and regular rhythm. Heart sounds: Normal heart sounds, S1 normal and S2 normal. Pulmonary: Effort: Pulmonary effort is normal. Breath sounds: Examination of the right-lower field reveals rhonchi. Rhonchi present. No decreased breath sounds, wheezing or rales. Lymphadenopathy: Cervical: No cervical adenopathy. Right cervical: No superficial cervical adenopathy. Left cervical: No superficial cervical adenopathy. Neurological: Mental Status: He is alert and oriented to person, place, and time. Gait: Gait is intact. ASSESSMENT/PLAN: 1. Lower resp. tract infection - ICD9: 519.8, ICD10: J22 (primary diagnosis) - Discussed supportive care - Limit exposure to smoke and other inhaled irritants - Discussed possible red flags and when to seek medical attention - Follow up in 3-5 days or sooner if no better or worse -If you experience chest pain/shortness of breath go to ER -declines xray - DOXYCYCLINE MONOHYDRATE 100 MG TABLET - AMOXICILLIN 875 MG-POTASSIUM CLAVULANATE 125 MG TABLET 2. Pneumonia exposure - ICD9: V01.89, ICD10: Z20.89 Exam concerning for pneumonia. Sujata May APRN.FREDDY [facility] 11-24-2023 History of Presen t illness Narrative Subjective HPI HPI Roel Rose is a 38 year old male who presents today for CC of cough, fever, congestion. This started 5 days ago/worsening. Has tried otc medication for relief. Symptoms are worsened by nothing. Risk factors pneumonia exposure at home. Nonsmoker. .Patient presents with: Fever: Cough, chest congestion, [place], bodyaches x5 days, exposure to pneumonia No past medical history on file. PAST SURGICAL HISTORY Procedure Laterality Date PAST SURGICAL HISTORY OF multiple knee surgeries ALLERGIES Codeine MEDICATIONS omeprazole (PRILOSEC) 20 mg capsule Take 20 mg by mouth once daily. cyclobenzaprine (FLEXERIL) 10 mg tablet Take 1 tablet by mouth three times daily as needed for muscle spasm. naproxen sodium (ALEVE) 220 mg cap Take by mouth as needed. (Patient not taking: Reported on 11/24/2023) FAMILY HISTORY Problem Relation Age of Onset Heart disease Father Hypertension Father Social History Tobacco Use Smoking status: Former Current packs/day: 0.00 Types: Cigarettes Quit date: 02/18/2020 Years since quittin.7 Smokeless tobacco: Never Substance Use Topics Alcohol use: Never Drug use: Never Review of Systems Constitutional: Positive for chills, fever and malaise/fatigue. HENT: Positive for congestion and sinus pain. Negative for ear pain, nosebleeds and sore throat. Respiratory: Positive for cough and sputum production. Negative for shortness of breath and wheezing. Cardiovascular: Negative for chest pain. Musculoskeletal: Negative for neck pain. Skin: Negative for itching and rash. Objective Blood pressure 133/93, pulse (!) 128, temperature (!) 38.1 C (100.6 F), resp. rate 20, weight 86.2 kg (190 lb 0.6 oz), SpO2 98%. Physical Exam Constitutional: General: He is not in acute distress. Appearance: He is not toxic-appearing or diaphoretic. HENT: Head: Normocephalic and atraumatic. Cardiovascular: Rate and Rhythm: Normal rate and regular rhythm. Heart sounds: Normal heart sounds, S1 normal and S2 normal. Pulmonary: Effort: Pulmonary effort is normal. Breath sounds: Examination of the right-lower field reveals rhonchi. Rhonchi present. No decreased breath sounds, wheezing or rales. Lymphadenopathy: Cervical: No cervical adenopathy. Right cervical: No superficial cervical adenopathy. Left cervical: No superficial cervical adenopathy. Neurological: Mental Status: He is alert and oriented to person, place, and time. Gait: Gait is intact. ASSESSMENT/PLAN: 1. Lower resp. tract infection - ICD9: 519.8, ICD10: J22 (primary diagnosis) - Discussed supportive care - Limit exposure to smoke and other inhaled irritants - Discussed possible red flags and when to seek medical attention - Follow up in 3-5 days or sooner if no better or worse -If you experience chest pain/shortness of breath go to ER -declines xray - DOXYCYCLINE MONOHYDRATE 100 MG TABLET - AMOXICILLIN 875 MG-POTASSIUM CLAVULANATE 125 MG TABLET 2. Pneumonia exposure - ICD9: V01.89, ICD10: Z20.89 Exam concerning for pneumonia. Sujata May APRN.PEER SPECIALIST documented in this encounter [facility] 04-28-2023 Hospital Discharg e instructions Additional Instructions Consider trying a mini colon cleanse with MiraLAX or generic equivalent (polyethylene glycol or PEG). Use 1-2 cups with plenty of water within a 8-hour period, and expect watery diarrhea within 12 hours. Drink plenty of water to prevent getting dehydrated. [facility] Work Phone: 04-28-2023 Discharge summary Note Date/Time April 28, 2023 12:07am [facility] Medical Records Department [address] [address] Emergency Department Summary 04/28/23 MR#: [id number] Acct: [id number] Name: ROEL ROSE Rep #:[id number] : 1985 38 From: Deion Butler MD PCP: Care Physician,No Primary Status :REG ER Location: ED HPI HPI - GI History of Present Illness Chief Complaint: Constipation Informant: patient Narrative Narrative: Patient states he has been having abdominal discomfort, bloating, constipation for up to about a month, and nonspecific abdominal "problems" for maybe up to a year. He saw his doctor, was referred to GI with whom he has not had the appointment yet, he is post to see Dr. Yu next week, however in the past couple days everything is worse, he cannot keep anything down, is vomiting without blood or bilious emesis. Initially he was having just very hard stools despite Ex-Lax and stool softeners, then he would intermittently have bouts of watery diarrhea and abdominal cramping and then back to constipation again. In the last week or so, he feels like he needs to go but cannot other than very small amounts of loose stool. [facility] Medical History (Updated 04/28/23 @ 02:[address] Deion Butler MD) Chronic pain after traumatic injury Home Medications dicyclomine 20 mg tablet 20 mg PO TID PRN abdominal pain #20 tabs 08/25/21 [Rx Last Taken Unknown] hydrocodone-acetaminophen 5-325mg 5mg-325mg 1 tab PO Q6H PRN PRN Pain 3 days #12TABLETS 08/25/21 [Rx Last Taken Unknown] ondansetron 4 mg disintegrating tablet 4 mg PO Q6H PRN PRN Nausea #15 tabs 08/25/21 [Rx Last Taken Unknown] cyclobenzaprine 10 mg tablet 10 mg PO Q8H PRN PRN muscle spasm 04/28/23 [History Last Taken Unknown] hyoscyamine sulfate 0.125 mg disintegrating tablet 0.125 mg PO Q6H PRN abdominaldiscomfort #20 tabs 04/28/23 [Rx Last Taken Unknown] Allergy/AdvReac Type Severity Reaction Status Date / Time codeine Allergy Mild Chest Verified 04/27/23 23:42 tightness Surgical History Hx of appendectomy Social History Smoking Status: Former smoker substance use type: does not use ROS ROS ED Constitutional Constitutional ED: Denies chills or fever(s) Eyes Eyes: Denies change in vision or diplopia ENT ENT ED: Denies rhinorrhea or sore throat Cardiovascular Cardiovascular: Denies chest pain or palpitations Respiratory/Chest Respiratory/Chest: Denies cough or dyspnea Gastrointestinal Gastrointestinal: Reports abdominal pain, constipation, diarrhea, nausea and vomiting; Denies melena Genitourinary Genitourinary ED: Denies dysuria or hematuria Musculoskeletal Musculoskeletal: Denies back pain or neck pain Integumentary Denies abscess or rash Neurologic Neurologic: Denies headache(s), paresthesias or weakness Psychiatric Psychiatric: Denies anxiety or suicidal thoughts EXAM Physical Exam Const Vital Signs: 04/27/23 23:43 04/28/23 00:19 04/28/23 02:00 Temperature 96.5 F L Temperature Source Temporal Pulse Rate 87 66 80 Respiratory Rate 18 18 16 Blood Pressure 139/105 H 134/92 H 121/92 H Blood Pressure Mean 116 106 101 Pulse Ox 96 100 100 Oxygen Delivery Method Room Air Room Air Room Air Positive well nourished and well developed General Appearance ED: well developed and NAD HEENT Reports moist mucous membranes normocephalic and atraumatic Eyes PERRL and EOMs intact bilaterally Neck full ROM and supple Resp normal respiratory effort and clear to auscultation bilaterally Cardio regular rate, regular rhythm and no murmurs GI GI Narrative: Distended abdomen with hypoactive bowel sounds but an occasional tinkle. Tenderright lower quadrant and across the upper abdomen. Palpation: soft Back/Spine no CVA tenderness General Back: other FROM Extremity normal to inspection General Extremety ED: Negative for edema, pulses abnormal or tenderness General Extremity: Negative for edema or pulses abnormal Neuro oriented x3, CN's II-XII intact bilaterally and no sensory deficits noted Sensorium / Orientation: awake and alert Motor Exam: strength 5/5 throughout Psych mental status grossly normal and thought process normal Skin no rashes or lesions noted and no wounds MDM MDM MDM Narrative Medical decision making narrative: We discussed treating constipation, however they are thinking this is something different. With the intermittent nature of the consistency of his stools, certainly encopresis is in the differential, but this may also be something different like colitis, irritable bowel syndrome, inflammatory bowel disease. Therefore prior to his specific treatment, he is amenable to CT and labs. This was done. I reviewed the CT images and report which I agree with, basically negative for anything acute. When I reevaluated him, he states he is still feeling bloated. His bowels are not distended on the CT. He has stool in the ascending and descending colon, but not an excessive amount. We discussed trying an enema, he declines. We did discuss fatty liver finding on the CT which is an incidental finding and I do not think related to the symptoms directly. 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 Therefore I did a bedside ultrasound of his gallbladder, he has a negative sonographic Brower's, I see no shadowing stones or gallbladder wall thickening or pericholecystic fluid. At this time my recommendation would be to try a minicleanse with 1-2 cups of MiraLAX in a 12-hour period along with plenty of water,dicyclomine as needed, and follow-up with GI as scheduled. He is amenable to this plan. Lab Data Attestation: I reviewed the patient's lab results. Labs: Laboratory Results - last 24 hr 04/28/23 00:10 WBC 9.2 RBC 5.43 Hgb 15.5 Hct 45.1 MCV 83.1 MCH 28.5 MCHC 34.4 RDW Std Deviation 37.2 RDW Coeff of Rosalva 12.3 Plt Count 342 MPV 9.3 Immature Gran % (Auto) 1.300 H Neut % (Auto) 56.0 Lymph % (Auto) 34.1 Winkler % (Auto) 5.8 Eos % (Auto) 2.3 Baso % (Auto) 0.5 Absolute Neuts (auto) 5.2 Absolute Lymphs (auto) 3.14 Nucleated RBC % 0 Sodium 143 Potassium 3.3 L Chloride 111 H Carbon Dioxide 25.0 Anion Gap 7 BUN 15 Creatinine 1.13 Estim Creat Clear Calc 92.55 Est GFR (MDRD) Af Amer 92 Est GFR (MDRD) Non-Af 76 BUN/Creatinine Ratio 13.3 Glucose 120 H Calcium 9.2 Total Bilirubin 1.00 AST 40 H ALT 106 H Alkaline Phosphatase 53 Total Protein 7.5 Albumin 4.4 Globulin 3.1 Albumin/Globulin Ratio 1.4 Lipase 48 Urine Color Yellow Urine Clarity Clear Urine pH 5.0 Ur Specific [place] 1.020 Urine Protein Negative Urine Glucose (UA) Normal Urine Ketones 50 H Urine Occult Blood Negative Urine Nitrite Negative Urine Bilirubin Negative Urine Urobilinogen Normal Ur Leukocyte Esterase Negative Urine RBC 0 SEEN Urine WBC 0 SEEN Ur Squamous Epith Cells 0 SEEN Urine Bacteria 0 SEEN Urine Mucus 0 SEEN Radiography Diagnostic Testing: Clinical Impression(s) from Imaging Studies Abdomen/Pelvis CT 04/28/23 00:03 IMPRESSION: 1. Fatty liver. 2. No acute abdominal pelvic abnormality. Electronically Signed: Silviano Hernandez MD at 1:40 EDT , Discharge Plan Triage Chief Complaint: Constipation ED Provider: Deion Butler Dx/Rx/DC Orders Clinical Impression: Diffuse abdominal pain Instructions: Abdominal Pain Prescriptions: New hyoscyamine sulfate 0.125 mg tablet,disintegrating 0.125 mg PO Q6H PRN (Reason: abdominal discomfort) Qty: 20 0RF No Action hydrocodone-acetaminophen [hydrocodone-acetaminophen] 5-325 mg tablet 1 tab PO Q6H PRN PRN (Reason: Pain) 3 Days Qty: 12 0RF ondansetron [ondansetron] 4 mg tablet,disintegrating 4 mg PO Q6H PRN PRN (Reason: Nausea) Qty: 15 0RF dicyclomine 20 mg tablet 20 mg PO TID PRN (Reason: abdominal pain) Qty: 20 0RF cyclobenzaprine 10 mg tablet 10 mg PO Q8H PRN PRN (Reason: muscle spasm) Primary Care Provider: Care Physician,No Primary Referrals: Saleem Yu MD [Non-Staff] - [facility] appointment Activity Restrictions/Additional Instructions: Consider trying a mini colon cleanse with MiraLAX or generic equivalent (polyethylene glycol or PEG). Use 1-2 cups with plenty of water within a 8-hourperiod, and expect watery diarrhea within 12 hours. Drink plenty of water to prevent getting dehydrated. Disposition Disposition: Home, Self Care What to do if you have Problems For any increased pain, shortness of breath, bleeding, nausea or vomiting, chestpain, or any unexpected problems, contact your Primary Care Provider. Call [facility] ([phone]) or report to the closest Emergency Room. Call 911 if necessary. 04/28/23 0256 <Electronically signed by Deion Butler MD> Cosigner Signature (if applicable): CC: Dr. Saleem Yu MD; No Primary Care Physician ~ Signed [facility] Work Phone: [phone] 950-698407-03-2022 Instructions* Patient Instructions* Severiano Palm APRN.CNP - 08/17/2021 8:59 AM EDT TOOTHACHE: Your exam shows that your toothache is probably due to tooth decay and infection. Poor dental care is the main cause of this problem. Swelling and redness around a painful tooth often means you have a dental abscess. Pain medicine and antibiotics can help reduce symptoms, but you will need to see a dentist within the next few days to have your problem properly treated. Fillings or root canal work may be needed tosave your tooth. If the problem is severe, your tooth may need to be pulled. Please return here right away if you have a fever over 101F, can t swallow, or develop severe swelling. [facility] History of Present illness Narrative* Severiano Palm APRN.CNP - 08/17/2021 8:58 AM EDT Images from the original note were not included. Subjective HPI Nontoxic in male presents urgent care chief plaint dental pain. Duration of symptoms 2 days. Associated symptoms right-sided dental pain. Patient states has had previous dental infections this feels similar. Has been using Tylenol Motrin this is helped some with pain management. Presents today for evaluation. Denies any trauma. Is following up with dentist early next week. Denies any fevers nausea vomiting abdominal pain chest pain shortness of breath trismus difficulty swallowing difficulty handling secretions decreased range of motion neck. No rashes or headache. Past medical history prescription medication use allergies reviewed. BP 118/80 Pulse 69 Temp 36.3 C (97.4 F) Resp 16 Wt 83.5 kg (184 lb) SpO2 99% .Patient presents with: tooth pain: right side of mouth, bottom History reviewed. No pertinent past medical history. PAST SURGICAL HISTORY Procedure Laterality Date PAST SURGICAL HISTORY OF multiple knee surgeries ALLERGIES Codeine MEDICATIONS naproxen sodium (ALEVE) 220 mg cap Take by mouth as needed. cyclobenzaprine (FLEXERIL) 10 mg tablet Take 1 tablet by mouth three times daily as needed for muscle spasm. FAMILY HISTORY Problem Relation Age of Onset Heart disease Father Hypertension Father Social History Tobacco Use Smoking status: Current Some Day Smoker Smokeless tobacco: Never Used Substance Use Topics Alcohol use: Never Drug use: Never Review of Systems Constitutional: Negative for chills, fever and malaise/fatigue. HENT: Negative for congestion, ear discharge, ear pain, sinus pain and sore throat. Eyes: Negative for blurred vision, pain, discharge and redness. Respiratory: Negative for cough, hemoptysis, sputum production, shortness of breath, wheezing and stridor. Cardiovascular: Negative for chest pain. Gastrointestinal: Negative for abdominal pain, diarrhea, nausea and vomiting. Musculoskeletal: Negative for myalgias. Skin: Negative for itching and rash. Neurological: Negative for dizziness and headaches. Objective Physical Exam Constitutional: General: He is not in acute distress. Appearance: He is not diaphoretic. HENT: Head: Normocephalic. Jaw: No trismus, tenderness, swelling, pain on movement or malocclusion. Mouth/Throat: Mouth: Mucous membranes are moist. Dentition: Abnormal dentition. Dental tenderness and dental caries present. No gingival swelling ordental abscesses. Pharynx: Oropharynx is clear. Uvula midline. No pharyngeal swelling, oropharyngeal exudate, posterior oropharyngeal erythema or uvula swelling. Eyes: Conjunctiva/sclera: Conjunctivae normal. Pupils: Pupils are equal, round, and reactive to light. Cardiovascular: Rate and Rhythm: Normal rate and regular rhythm. Heart sounds: Normal heart sounds. Pulmonary: Effort: Pulmonary effort is normal. No tachypnea, accessory muscle usage or respiratory distress. Breath sounds: Normal breath sounds. No stridor. No wheezing, rhonchi or rales. Abdominal: Palpations: Abdomen is soft. Tenderness: There is no abdominal tenderness. Musculoskeletal: Cervical back: Normal range of motion and neck supple. No rigidity or tenderness. Lymphadenopathy: Cervical: No cervical adenopathy. Skin: General: Skin is warm and dry. Neurological: Mental Status: He is alert and oriented to person, place, and time. ASSESSMENT/PLAN: 1. Pain, dental - ICD9: 525.9, ICD10: K08.89 Patient diagnosed with dental pain. Will be placed on Augmentin. No red flag symptoms. Follow-up with dentist as scheduled. Patient was educated on supportive therapies. Patient will follow up with primary care provider as needed. Patient was instructed to immediately proceed to emergency room for any new, worsening, or symptoms lasting longer than anticipated. The patient's clinical presentationis otherwise unremarkable at this time. Based on exam and clinical finding, the patient is stable for discharge. Plan of care was discussed with patient. Patient verbalizes understanding and agrees to plan of care. This note was generated using [employer] software. It may contain errors in wording, punctuation, or spelling. Severiano Palm APRN.FREDDY [facility] History of Present illness Narrative* Jerica Gunter RT(R) - 01/23/2021 8:30 AM EST Radiology Service Progress Note PATIENT NAME: Roel Rose DATE OF SERVICE: January 23, 2021 TIME: 8:24 AM PATIENT IDENTITY VERIFICATION COMPLETED USING TWO (2) IDENTIFIERS: Name and Date of confirmedby patient verbally. FALL SCREENING: Has the patient had 2 falls in the last year or 1 fall with injury or currently using an Ambulatory Assistive Device (Walker, Cane, Wheelchair, Crutches, etc.)? No PATIENT GENDER DATA: Male PATIENT RELEVANT IMPLANT DATA REVIEWED: Not Applicable RADIOLOGY DEPARTMENT: General X-ray: Exam(s) Completed: Spine X-Ray(s): Thoracic and Lumbar AP / LAT / L5-S1 PERIPHERAL IV DATA: Not applicable SIGNED BY: RT Santiago(R) January 23, 2021 8:24 AM [facility] No data available for this section [facility] Evaluation note* Diagnosis Pain, dental- Primary Unspecified disorder of the teeth and supporting structures [facility] noteNo assessment information availableWCleveland Clinic [facility] Work Phone: Evaluation note* Diagnosis Lower resp. tract infection- Primary Other diseases of respiratory system, not elsewhere classified Pneumonia exposure Contact with or exposure to other viral diseases documented in this encounter [facility] Discharge instructions No data available for this section [facility] Progress note No data available for this section [facility] Reason for visit Narrative* Diagnostic Procedure Only (Urgent) - Closed Specialty Diagnoses / Procedures Referred By Contac t Referred To Contact XR IMAGING Diagnoses Injury of back, initial encounter Procedures XR LUMBAR GENERAL 3V AP/LAT/L5-S1 X-RAY L-S SPINE AP/LATERAL Sujata May APRN.PEER SPECIALIST [address] [place] [address] [place] [id number] Referral ID Status Reason Start Date Expiration Date V isits Requested Visits Authorized [id number] Closed Auto-Generate d Referral 01/23/2021 02/22/2022 1 1 [facility] Chief Complaint and Reason for Visit Chief Complaint VOMITING Chief Complaint constipation, abd pa in Chief Complaint constipation, abd pa in CONSTIPATION Advance Directives Advance Directive Response Recorded Date/ Time Living Will No August 25, 2021 12:49pm Power of Instrument Installer No August 25 12:49pm Advance Directive Response Recorded Date/ Time Living Will No April 28, 2023 12:21am Power of Instrument Installer No April 27 12:21am Summary Purpose Family History No Family History Records Found Additional Source Comments Source Comments (unrecognize d section and content) In the event this informatio n is protected by the Federal Confidentiality of Alcohol and Drug Abuse Patient Records regulations: The Federal rules restrict any use of the information to criminally investigate or prosecute any alcohol or drug abuse patient.[facility] the event this information is protected by the Federal Confidentiality of Alcohol and Drug Abuse Patient Records regulations: The Federal rules restrict any use of the information to criminally investigate or prosecute any alcohol or drug abuse patient.[facility] Hospital[facility] the event this information is protected by the Federal Confidentiality of Alcohol and Drug Abuse Patient Records regulations: The Federal rules restrict any use of the information to criminally investigate or prosecute any alcohol or drug abuse patient.[facility] Reason for Visit (unrecogniz ed section and content) Reason Comments tooth pain right side of mouth, bottom Reason Comments Fever Cough, chest congest ion, [place], bodyaches x5 days, exposure to pneumonia Goals (unrecognized section and content) Goals may be documented in a n alternate section No data available for this sectionGoals may be documented in an alternate sectionGoals may be documented in an alternate section Patient Care team informatio n (unrecognized section and content) Team Status: Active Member Role Status Dates Out of Town Doctor Family Provider Active No Primary Care Physician Primary Care Provider Active Team Status: Inactive Member Role Status Dates No Primary Care Physician Primary Care Provider Active Dr. Deion Butler MD Emergency Provider Active Team Status: Inactive Member Role Status Dates No Primary Care Physician Primary Care Provider Active Dr. Deion Butler MD Attending Provider, Emergency Provider Active Team Status: Inactive Member Role Status Dates No Primary Care Physician Primary Care Provider Active Dr. Saleem Yu MD Attending Provider, Referring Provider Active (unrecognized sect ion and content) No Status Records FoundNo Status Records FoundNo Status Records Found INFORMATION SOURCE (unrecogn ized section and content) DATE CREATED AUTHOR 05/11/2023 [facility] DATE CREATED AUTHOR AUTHOR'S ORGANIZ ATION 05/12/2023 [facility] [place] DATE CREATED AUTHOR AUTHOR'S ORGANIZ ATION 11/26/2023 [facility] FOR RECORDS PERTAINING TO PATIENTS WHO ARE OR HAVE BEEN ENROLLED IN A CHEMICAL DEPENDENCY/SUBSTANCEABUSE PROGRAM, SOME INFORMATION MAY BE OMITTED. This clinical summary was aggregated from multiple sources. Caution should be exercised in using it in the provision of clinical care. This summary normalizes information from multiple sources, and as a consequence, information in this document may materially change the coding, format and clinical context of patient data. In addition, data may be omitted in some cases. CLINICAL DECISIONS SHOULD BE BASED ON THE PRIMARY CLINICAL RECORDS. [facility] [employer] [facility]. provides no warranty or guarantee of the accuracy or completeness of information in this document.
[2025-01-03 13:03] LABS: AST(SGOT) 38 U/L (<=37); Alanine Aminotransfer ALT/SGPT 62 U/L (<=46); Albumin, Serum 4.8 g/dL (3.5-5.0); Alkaline Phosphatase 63 U/L (40-129); Anion Gap 10 (5-15); BUN 13 mg/dL (4-19); BUN/Creat Ratio 12.3 RATIO (10-20); Calcium,Total 9.8 mg/dL (7.6-11.0); Carbon Dioxide 24.5 mmol/L (21.0-32.0); Chloride 106 mmol/L (98-108); Globulin 2.9 g/dL (2.2-4.2); Glucose 99 mg/dL (70-99); Potassium 3.9 mmol/L (3.3-5.1); Vitamin B12 417 pg/mL (180-914)
[2025-01-03 13:36] LABS: CRP < 3.00 mg/L (0.0-3.0)
[2025-01-05 13:08] LABS: ANTINUCLEAR ANTIBODIES DIRECT Negative (Negative); Vitamin D 1,25-Dihydroxy 47.9 pg/mL (24.8-81.5)
[2025-01-07 15:07] LABS: Folate, Hemolysate Test 414.0 ng/mL (Not Estab.); Folate, RBC (Hct) Test 48.7 % (37.5-51.0); Folates, RBC Test 850 ng/mL (>498); VITAMIN B6 19.2 ug/L (3.4-65.2); Vitamin B1, Thiamine 148.4 nmol/L (66.5-200.0)
== END | disposition home or self-care (01) ==
LOC: MTLAB 10:51
PROVIDERS: Referring Provider Psychiatry & Neurology Neurology; Visit Provider Psychiatry & Neurology Neurology
DX: G62.9 Polyneuropathy, unspecified (principal); R73.9 Hyperglycemia, unspecified
CPT/HCPCS: 36415; 80053; 82607; 82652; 82747; 83036; 83883; 84207; 84425; 84443; 85014; 85027; 85652; 86038; 86140; 86225

== ENCOUNTER → 2025-01-18 | Outpatient (CLI) | payer OTHER, SELFPAY ==
--- NOTE | 2025-01-18 10:50 | MRI_ITS ---
PROCEDURE: BRAIN W/WO CONTRAST 01/18/2025 REASON FOR EXAM: LEFT ATYPICAL FACIAL PAIN; MIGRAINE HEADACHES TECHNIQUE: Procedure Code: MRIBRWW Modality: MR Procedure: BRAIN W/WO CONTRAST Multiplanar and multisequence images were obtained. CONTRAST: Clariscan VOLUME: 17 mL COMPARISON: None available. FINDINGS: No acute infarct or hemorrhage. The brain parenchyma is within normal limits. There is no abnormal intracranial enhancement. 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 No significant mass effect or herniation of the brain. The ventricular system and sulci/fissures are within expected limits of size and configuration for the patient's stated age. The basal cisterns are patent. The intracranial large vessel arterial flow voids are maintained. The mastoid air cells clear. There is scattered paranasal mucosal thickening. Mild cystic changes of adenoid tissue in the posterior nasopharynx. The orbits are unremarkable. The calvarial bone marrow signal is within normal limits. MRI/Brain W/WO Contrast IMPRESSION: 1. No intracranial enhancing lesion. No acute intracranial pathology. 2. 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 Reading Location: [id number]
== END | disposition home or self-care (01) ==
PROVIDERS: PCP Physician Assistant; Referring Provider Psychiatry & Neurology Neurology; Visit Provider Psychiatry & Neurology Neurology
DX: G50.1 Atypical facial pain (principal); G43.009 Migraine without aura, not intractable, without status migrainosus
CPT/HCPCS: 70553; A9575; A4216

== ENCOUNTER → 2025-01-24 | Outpatient (CLI) | payer OTHER, SELFPAY ==
--- NOTE | 2025-01-24 12:34 | NEURO ---
NCS and/or EMG Patient Report Ordering Doctor: Lamont Russell DATE OF SERVICE: 01/24/25 Max presents with complaints of numbness in the lower legs, primarily on the left side. Reports a burning sensation in the left calf. Electrodiagnostic findings: Peroneal motor nerve demonstrates normal distal latency, amplitude and conduction velocity bilaterally. Normal tibial motor response bilaterally. Normal peroneal and tibial F?waves. Normal H?reflex bilaterally. Sensory responses are within normal limits. Needle EMG testing was performed the lower limbs. All muscles tested showed no evidence of denervation with normal motor unit action potentials. Electrodiagnostic impression: This a normal electrodiagnostic study of the lower limbs. There is no electrodiagnostic evidence for peripheral neuropathy or lumbosacral radiculopathy. Multi Select Codes Neurology Neurology Interp Codes: 41736-67 Musc test done w/n test comp (interp) (2) and 81324-86 Nrv cndj test 9-10 studies (interp)
== END | disposition home or self-care (01) ==
PROVIDERS: Referring Provider Psychiatry & Neurology Neurology; Visit Provider Psychiatry & Neurology Neurology
DX: R20.0 Anesthesia of skin (principal); G62.9 Polyneuropathy, unspecified; M54.50 Low back pain, unspecified
CPT/HCPCS: 95886; 95911